=== PATIENT | male | born 1940 | race Caucasian/White ===

== ENCOUNTER 2019-01-05 12:58 | Outpatient (CLI) | payer MEDICARE ==
--- NOTE | 2019-01-05 15:29 | PET ---
Radionucleotide PET scan with CT attenuation correction HISTORY: Diffuse large B-cell lymphoma. Initial staging. COMPARISON: Correlated with CT from [facility] 11/18/2018. FINDINGS: Physiologic uptake of radiotracer throughout the enteric system and along each urinary trac t. Maximum SUV of the uptake associated with the large necrotic right lower quadrant mass is 24.0. Other abnormal areas of uptake are as follows (maximum SUV): Left neck level IIb lymph node (3.5) Right neck level IIb lymph node (2.3) Right internal mammary lymph node (10.9) Right mediastinum superior hilar lymph node (2.7) Left lower para-aortic retroperitoneal lymph node (6.6) Left lower quadrant mesenteric lymph node (4.0) Bulky adenopathy immediately inferior to the aortic bifurcation (10.7) IMPRESSION: Extensive lymphomatous involvement of the neck, chest, and abdomen/pelvis as detailed abo ve. Dianaille score 5 a.
== END 2019-01-05 12:59 | disposition home or self-care (01) ==
LOC: PET 12:58
PROVIDERS: ATTEND Internal Medicine Hematology & Oncology
DX: C83.32 Diffuse large B-cell lymphoma, intrathoracic lymph nodes (principal)
CPT/HCPCS: 78815; A9552

== ENCOUNTER 2019-01-14 16:37 | Emergency (ER) | payer MEDICARE ==
[2019-01-14] MEDS ORDERED: Ondansetron PF 4 MG/2 ML Vial ONE (17:33)
[2019-01-14] MEDS ORDERED: Morphine 4 MG/ML VIAL ONE (17:33)
[2019-01-14 17:42] LABS: Hemoglobin 11.9 g/dL (14.0-18.0); Mean Corpuscular HGB CONC 32.8 g/dL (32.0-36.0); Mean Corpuscular Hemoglobin 28.5 pg (27.0-31.0); Mean Platelet Volume 7.7 fL (7.4-10.4); Platelet Count 236 thou/uL (130-400); Red Blood Cell (RBC) Count 4.17 mill/uL (4.70-6.10); White Blood Cell (WBC) Count 9.8 thou/uL (4.8-10.8)
[2019-01-14 17:56] LABS: Band 1 % (5-11); Lymphocytes 6 % (21-51); MDiff Complete? YES; Monocytes 6 % (0-10); Neutrophil 87 % (42-75); Platelet Morphology Comment Appears Adequate; Polychromasia SLIGHT = 2-3 cells (100X) (0-2/hpf)
[2019-01-14 18:01] LABS: ALT (SGPT) 8 U/L (8-55); AST (SGOT) 20 U/L (5-34); Albumin 3.5 g/dL (3.4-4.8); Alkaline Phosphatase 62 U/L (40-150); Anion Gap 13 mmol/L (10-20); BUN (Urea Nitrogen) 21 mg/dL (8.4-25.7); Bilirubin, Total 0.7 mg/dL (0.2-1.2); CK (CPK) 19 U/L (30-200); Calc. Creatinine Clearance 0 mL/min (70-130); Calcium 9.1 mg/dL (7.8-10.44); Carbon Dioxide 25 mmol/L (23-31); Chloride 102 mmol/L (98-107); Estimated GFR-MDRD 76; Globulin 2.9 g/dL (2.4-3.5); Glucose 130 mg/dL (83-110); Lipase 34 U/L (8-78); Potassium 3.8 mmol/L (3.5-5.1); Protein, Total 6.4 g/dL (5.8-8.1); Sodium 136 mmol/L (136-145)
--- NOTE | 2019-01-14 18:31 | CT ---
CT ABDOMEN AND PELVIS WITH CONTRAST: 01/14/19 HISTORY: History provided is colon cancer. Post surgery 12/25/18. Comparison made to a CT scan from [facility] dated 11/18/18 which has been loaded onto [facility]. Comparison also made to a PET CT of 01/05/19. FINDINGS: The lung bases show chronic parenchymal change without infiltrate or effusion. The liver, spleen, and pancreas are unremarkable. Small bowel loops are normal caliber. Stool and gas seen throughout the colon. There is a large heterogeneous mass in the mid abdomen to the right of midline which has been previou sly noted. This mass was measured at 8 cm AP dimension on the 11/18/18 exam. This mass has an AP dimen guero of up to 10 cm today indicating interval enlargement. A small amount of free fluid in the abdome n. 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 Both kidneys show symmetric enha ncement and function. Urinary bladder is unremarkable. Prostatic seed implants are noted. There are enlarged para-aortic lymph nodes. The lymph node to the left of the aorta just above the b ifurcation has increased in size from prior exam and now measures 1.5 cm. This was a subcentimeter no de on the prior study. Osseous structures appear unremarkable. IMPRESSION: Large heterogeneous mass in the mid abdomen to the right of midline has increased in size when compar ed to recent study. Increasing adenopathy is also apparent. POS: ELLI
[2019-01-14 19:11] LABS: Bilirubin Negative (Negative); Blood, Urine Negative (Negative); Clarity Clear (Clear); Glucose, Urine (Dipstick) Normal (Negative); Leukocyte Negative Leu/uL (Negative); Nitrite Negative (Negative); Protein, Urine (Dipstick) Negative (Neg-Trace); Urobilinogen Normal mg/dL (Less than 2)
== END 2019-01-14 19:47 | disposition home or self-care (01) ==
LOC: ERS 16:37
DX: G89.3 Neoplasm related pain (acute) (chronic) (principal); C18.9 Malignant neoplasm of colon, unspecified; E11.9 Type 2 diabetes mellitus without complications; E78.5 Hyperlipidemia, unspecified; I25.2 Old myocardial infarction; I10 Essential (primary) hypertension; Z85.72 Personal history of non-Hodgkin lymphomas; Z85.46 Personal history of malignant neoplasm of prostate; Z79.899 Other long term (current) drug therapy; Z79.82 Long term (current) use of aspirin
CPT/HCPCS: 74177; 80053; 81003; 82550; 83690; 85025; 96361; 96374; 96375; J2270; J2405

== ENCOUNTER 2019-01-17 17:45 | Inpatient (IN) | payer MEDICARE ==
[~2019-01-17 17:45] MED LIST: ISOVUE-370 76%-LOCM 1 ML ONE
--- NOTE | 2019-01-17 18:50 | CT ---
CTA CHEST AND ABDOMEN AND PELVIS UTILIZING IV CONTRAST WITH 3D REFORMATTED IMAGING: INDICATIONS: History of large B cell lymphoma with sudden onset of pain in the colon area with pain radiating to t he back with constipation. FINDINGS: No acute aortic stenosis, occlusion, or aneurysmal formation is evident. There are moderate calcific ations and irregularity involving the abdominal aorta. There is some mass effect from the large mese nteric mass seen within the central aspect of the abdomen, to the right of midline, on the prior exam ination, dated 01/14/2019. Thismass has not appreciably changed in size, measuring 12.2 x 9.8 cm. The lesion appears to arise from the wall of the proximal sigmoid colon. There are additional enlarg ed mesenteric lymph nodes seen adjacent to this lesion. There are enlarged periaortic lymph nodes, w hich are largely stable. One of the largest is seen within the left periaortic region, measuring 1.1 cm. This is roughly stable to the prior exam. There are patchy areas of tree-in-bud nodularity seen within the lingula and in the right upper lobe. There are scattered areas of emphysema. No definite enlarged mediastinal hilar lymphadenopathy is evident. No axillary lymphadenopathy is evident. The gallbladder is mildly distended. No focal hepatic lesion is evident. The spleen and pancreas ap pear within normal limits. The adrenal glands are normal appearing. The right kidney is normal appe aring. The left pelvic kidney is normal appearing. The visualized bladder, rectum, and perirectal s oft tissues are unremarkable appearing. There is scattered degenerative and osteoarthritic change. The endplate depression deformity of T11 is stable. There are brachytherapy beads in the prostate. IMPRESSION: 1. No acute aortic stenosis, occlusion, or aneurysmal formation. 2. Scattered tree-in-bud nodularity is seen within the lungs, suspicious for bronchiolitis. 3. Persistent pericolonic mass involving the proximal sigmoid colon. There is a moderate amount of retained stool, the majority of which is liquid, in the colon. The small bowel is mildly dilated. M ild obstructive physiology may be related to this mass lesion. There is stool present within the dis kristi sigmoid colon and rectum beyond the level of the mass. This lesion is not completely obstructive . 4. Periaortic retroperitoneal lymphadenopathy. 5. Other chronic findings as above. POS: BH
[2019-01-17 18:59] LABS: ALT (SGPT) 9 U/L (8-55); AST (SGOT) 21 U/L (5-34); Albumin 3.2 g/dL (3.4-4.8); Alkaline Phosphatase 156 U/L (40-150); Anion Gap 14 mmol/L (10-20); BUN (Urea Nitrogen) 19 mg/dL (8.4-25.7); Bilirubin, Total 0.9 mg/dL (0.2-1.2); Calc. Creatinine Clearance 0 mL/min (70-130); Calcium 9.1 mg/dL (7.8-10.44); Carbon Dioxide 26 mmol/L (23-31); Chloride 103 mmol/L (98-107); Estimated GFR-MDRD Greater than 90; Globulin 2.7 g/dL (2.4-3.5); Glucose 119 mg/dL (83-110); Lipase 24 U/L (8-78); Potassium 3.9 mmol/L (3.5-5.1); Protein, Total 5.9 g/dL (5.8-8.1); Sodium 139 mmol/L (136-145)
[2019-01-17 19:02] LABS: Hemoglobin 11.1 g/dL (14.0-18.0); Mean Corpuscular HGB CONC 32.5 g/dL (32.0-36.0); Mean Corpuscular Hemoglobin 28.8 pg (27.0-31.0); Mean Corpuscular Volume 88.6 fL (78.0-98.0); RBC Distribution Width 14.3 % (11.5-14.5); Red Blood Cell (RBC) Count 3.84 mill/uL (4.70-6.10); White Blood Cell (WBC) Count 25.6 thou/uL (4.8-10.8)
[2019-01-17 19:13] LABS: Band 21 % (5-11); Basophilic Stippling SLIGHT = 1-2 cells (100X) (None Seen); Dohle Bodies SLIGHT; Eosinophils 1 % (0-10); Lymphocytes 5 % (21-51); MDiff Complete? YES; Mean Platelet Volume 9.6 fL (7.4-10.4); Neutrophil 72 % (42-75); Platelet Count 95 thou/uL (130-400); Platelet Morphology Comment Appears Decreased; Polychromasia SLIGHT = 2-3 cells (100X) (0-2/hpf); Reactive Lymphocytes 1 % (0-10); Reflex for Review?? NO; Toxic Granulation SLIGHT; Vacuoles SLIGHT
[2019-01-17 19:13] LABS: Bacteria/HPF None Seen HPF (None Seen); Bilirubin Negative (Negative); Blood, Urine Negative (Negative); Clarity Clear (Clear); Glucose, Urine (Dipstick) Normal (Negative); Leukocyte 75 Leu/uL (Negative); Nitrite Negative (Negative); Protein, Urine (Dipstick) 10 mg/dL (Neg-Trace); RBC/HPF 0-3 HPF (0-3); Squamous Epithelial 0-3 HPF (0-3); Urobilinogen Normal mg/dL (Less than 2)
[2019-01-17] MEDS ORDERED: Meropenem 2 GM in Sodium Chloride 0.9% 100 ML IVPB SCH (19:45)
[2019-01-17] MEDS ORDERED: Morphine 4 MG/ML VIAL SLOW IVP PRN (21:25)
[2019-01-17] MEDS ORDERED: Acetaminophen 325 MG TAB PO PRN (23:29)
[2019-01-18] MEDS ORDERED: Bisacodyl 10 MG SUPP PR PRN (03:49)
[2019-01-18] MEDS ORDERED: HumaLOG 300 UNITS/3 ML VIAL SC PRN ×2 (04:08)
[2019-01-18] MEDS ORDERED: Dextrose 50% Abboject 50 ML SYRINGE SLOW IVP PRN (04:08)
[2019-01-18] MEDS ORDERED: Dextrose 5% in Water 1,000 ML IV PRN (04:08)
[2019-01-18 04:43] LABS: Anion Gap 11 mmol/L (10-20); BUN (Urea Nitrogen) 14 mg/dL (8.4-25.7); Calc. Creatinine Clearance 75 mL/min (70-130); Calcium 8.6 mg/dL (7.8-10.44); Carbon Dioxide 28 mmol/L (23-31); Chloride 102 mmol/L (98-107); Estimated GFR-MDRD Greater than 90; Glucose 122 mg/dL (83-110); Potassium 3.7 mmol/L (3.5-5.1); Sodium 137 mmol/L (136-145)
[2019-01-18 04:49] LABS: Band 8 % (5-11); Hemoglobin 10.4 g/dL (14.0-18.0); Hypochromia SLIGHT = 6-15 cells (100X) (0-5/hpf); Lymphocytes 4 % (21-51); MDiff Complete? YES; Mean Corpuscular HGB CONC 33.3 g/dL (32.0-36.0); Mean Corpuscular Hemoglobin 29.4 pg (27.0-31.0); Mean Corpuscular Volume 88.3 fL (78.0-98.0); Mean Platelet Volume 8.8 fL (7.4-10.4); Monocytes 1 % (0-10); Neutrophil 87 % (42-75); Platelet Count 84 thou/uL (130-400); Platelet Morphology Comment Appears Decreased; RBC Distribution Width 14.4 % (11.5-14.5); Red Blood Cell (RBC) Count 3.52 mill/uL (4.70-6.10); White Blood Cell (WBC) Count 21.5 thou/uL (4.8-10.8)
[2019-01-18] MEDS: HYDROcodone/Acetaminophen 10/325 mg Tablet PO PRN (05:22)
--- NOTE | 2019-01-18 07:59 | HP ---
PRIMARY CARE PHYSICIAN: Dr. Almonte. CHIEF COMPLAINT: Abdominal pain. HISTORY OF PRESENT ILLNESS: Mr. Madison is a pleasant 78-year-old man with a known history of metastatic lymphoma, who is undergoing chemotherapy under the direction of Dr. Araya. His last treatment was on Friday last week, and he is not due for treatment until 02 of February. The patient states he has had persistent abdominal pain that seems to be exacerbated by constipation. He states he has not had a bowel movement in 4 to 5 days. He felt this was attributed to decreased oral intake. He does report passing flatus and denies any nausea or vomiting. He does feel slightly distended in the abdomen. Reports having issues with urinary hesitancy and feels he has to sometimes strain in order to begin urinating and then seems to be uncomfortable due to a known abdominal mass. The patient denies noting any hematemesis or blood per rectum. The patient states his pain is usually controlled with hydrocodone. Has not had significant response to morphine given. He has not had any fevers, chills, or sweats. The patient had a PET scan done on 2018 showing extensive lymphomatous involvement of the neck, chest, abdomen, and pelvis. On 01/14/2019, he underwent a CT scan of the abdomen and pelvis showing a large heterogeneous mass in mid abdomen to the right of midline that had increased in size when compared to recent study. Increased adenopathy present. In the Emergency Department, he had a CT dissection showing no acute aortic stenosis, occlusion, or aneurysmal formation. Scattered tree-in-bud nodularity seen within the lungs, suspicious for bronchiolitis. Persistent pericolonic mass involving the proximal sigmoid colon with a moderate amount of retained stool. The majority of which is liquid in the colon. The small bowel is mildly dilated. Mild obstructive physiology may be related to this mass. There is stool present within the distal sigmoid colon and rectum beyond the level of the mass. This lesion was not completely obstructive. Retroperitoneal lymphadenopathy present. PAST MEDICAL HISTORY: 1. Metastatic lymphoma. 2. Diabetes type 2. 3. History of LA. 4. Hyperlipidemia. 5. Hypertension. 6. Prostate cancer, treated with radiation in 2012. PAST SURGICAL HISTORY: Surgery attempt for removal of tumor. SOCIAL HISTORY: The patient denies any alcohol use, tobacco use, or illicit drug use. ALLERGIES: TRAMADOL. CURRENT MEDICATIONS: 1. Lisinopril. 2. Lovastatin. 3. Allopurinol. 4. Metoprolol succinate. 5. Omeprazole. PHYSICAL EXAMINATION: GENERAL: The patient found to be resting comfortably. VITAL SIGNS: Temperature 99.5, pulse 89, respirations 20, O2 saturation 96% on room air, and blood pressure 145/57. HEENT: Normocephalic and atraumatic. Pupils are equal, round, and reactive to light. Sclerae without icterus. Oropharynx is clear. NECK: Supple. LUNGS: Clear to auscultation bilaterally. CARDIAC: Regular rate and rhythm. ABDOMEN: Slightly distended, soft. No guarding or rigidity. Absent bowel sounds. EXTREMITIES: No lower leg swelling or edema. NEUROLOGIC: Alert and oriented x3. SKIN: Without rash or jaundice. LABORATORY DATA: White blood count 25.6, hemoglobin 11.1, hematocrit 34, and platelets 95. Sodium 139, potassium 3.9, BUN 19, creatinine 0.75, GFR greater than 90, glucose 119, lactic acid 1.9, calcium 9.1, total bilirubin 0.9, AST 21, ALT 9, alkaline phosphatase 156, total protein 5.9, albumin 3.2, lipase 24. Urinalysis notable for 40 of ketones, 75 leukocyte esterase, and 7 to 10 white blood cells. IMPRESSION AND PLAN: Mr. Madison is a 78-year-old man with known metastatic lymphoma referred for management of the following. 1. Abdominal pain. Secondary to abdominal mass, under treatment by Dr. Araya. CT dissection done in the ER shows changes consistent with a persistent pericolonic mass involving the proximal sigmoid colon. There was retained stool much of which is liquid, small bowel slightly dilated with a mild obstructive physiology suspected. Stool present within the distal sigmoid colon and rectum. Following discussion with Dr. Estevez, she advise a consultation to General Surgery. Very likely that surgery will not be indicated. We will keep the patient n.p.o. for now. We will continue to manage pain with IV morphine. 2. Diabetes. Initiate insulin sliding scale. Monitor glucose. 3. Hypertension. Resume home medications once verified and monitor blood pressure. 4. Gastrointestinal prophylaxis. 5. Deep venous thrombosis prophylaxis with mechanical SCDs. 6. Code status, full. The patient's decision maker is his , Marisol Madison. The patient's case was discussed with Dr. Estevez, who agrees with the plan of care as described above. Job ID: [id number] [facility]
[2019-01-18] MEDS: Famotidine/PF 20 mg/2ml Vial SLOW IVP SCH ×2 (08:49→21:39)
[2019-01-18] MEDS: Lisinopril 10 MG TAB PO SCH (09:02)
[2019-01-18] MEDS: Senokot S 8.6-50 MG TAB PO SCH ×2 (09:03→21:38)
[2019-01-18] MEDS: Morphine 4 MG/ML VIAL SLOW IVP PRN ×3 (11:54→22:21)
[2019-01-18] MEDS ORDERED: Magnesium Citrate 300 ML BOT PO SCH (14:00)
[2019-01-18] MEDS ORDERED: Milk Of Magnesia 30 ML UDCUP PO SCH (14:00)
[2019-01-18 16:37] VITALS: BMI 21.9
[2019-01-18] MEDS: Piperacillin/Tazobactam 3.375 GM in Sodium Chloride 0.9% 100 ML IVPB SCH ×2 (18:14→23:59)
--- NOTE | 2019-01-18 18:54 | PRG ---
DATE OF SERVICE: 01/18/2019 SUBJECTIVE: Mr. Madison is a very pleasant 78-year-old male with past medical history significant for metastatic B-cell lymphoma with known abdominal mass, who presented to the hospital with complaints of intractable abdominal pain and constipation. The patient continues to complain of abdominal pain, requiring IV pain medication. He continues to complain of constipation. States that his last bowel movement was approximately 6 days ago. He has had no nausea or vomiting. He denies any chest pain or shortness of breath. The patient is n.p.o. currently at the time of my assessment. OBJECTIVE: VITAL SIGNS: Blood pressure is 146/61, pulse is 86, O2 saturation is 95% on room air, respirations 16. The patient is afebrile, temperature 98.7. GENERAL: The patient is a thin, male, resting comfortably in bed. He is in no respiratory distress at this time. HEENT: Head is atraumatic and normocephalic. Mucous membranes are moist. NECK: Trachea is midline. No obvious JVD. CV: S1 and S2. Regular rate and rhythm. No appreciable murmurs, rubs, or gallops. LUNGS: Regular respiratory rate and pattern, overall clear to auscultation bilaterally. ABDOMEN: Mildly tender diffusely, positive bowel sounds, although hypoactive. No guarding. Abdomen is mildly distended. EXTREMITIES: No edema. SKIN: Warm and dry. NEUROLOGIC: Cranial nerves 2 through 12 are grossly intact. The patient is nonfocal. LABORATORY DATA: White blood cell count 21.5, hemoglobin 10.4, hematocrit 31.1, platelets are 84. Sodium 137, potassium 3.7, BUN is 14, creatinine 0.77, GFR greater than 90. ASSESSMENT: 1. Metastatic B-cell lymphoma with abdominal mass, now with intractable abdominal pain and constipation. 2. Question of partial small-bowel obstruction secondary to above per CT scan. 3. Type 2 diabetes mellitus. 4. Constipation. PLAN: Given the severity of the patient's symptoms and intractable pain requiring IV pain medication, the patient meets inpatient criteria at this time and will require at least two midnight stay. Oncology consult has been placed. The patient to receive chemotherapy in the near future; the patient's family has requested consult. Also as I state, they are being considered for referral to [facility]. When cleared by surgery, we will add p.o. medication for constipation. We will continue pain control for now and await surgical recommendations. Care discussed with Dr. Becerra, who recommends empiric antibiotic coverage with Zosyn at this time. Further recommendations based on hospital course. Job ID: [id number]
[2019-01-18] MEDS ORDERED: Non-Formulary Item 1 EACH (Lovastatin [Altoprev] 40 MG) PO SCH (21:00)
[2019-01-18] MEDS ORDERED: Citrucel 500 MG TAB PO SCH (21:00)
--- NOTE | 2019-01-18 21:18 | CON ---
DATE OF CONSULTATION: HISTORY OF PRESENT ILLNESS: Pérez Madison is a 78-year-old male, admitted to the hospital because of abdominal pain, lower back pain. He has not had any vomiting or nausea. Last bowel movement was 4 or 5 days ago. He passed flatus this morning. He was seen in the emergency room last night because of abdominal pain complaints, underwent a CAT scan dissection protocol without oral contrast, abdomen and pelvis. There was noted to be the large retroperitoneal mass, intraabdominal mass, lymphadenopathy. As previously appreciated, he is being treated for lymphoma by Dr. Araya. CAT scan suggested some scattered mild dilatation of the small bowel, stool present in the colon, mild dilatation of the proximal colon with stool still in the distal colon. The patient is admitted now that I see him regarding obstruction. The patient had a colonoscopy 3-[address] Almonte. Apparently, he was told the scope passed to visualize the whole colon. The patient tolerated his bowel prep prior well and he had a good bowel prep indicating absence of obstruction. The patient was felt to have an obstruction and Dr. Rebel Israel did an exploratory laparotomy on December 23, 2018. He suspected a colon tumor. Biopsies obtained revealed lymphoma. A MediPort was placed. He has been followed by Dr. Araya for chemotherapy. Dr. Araya hopes that the bulky lymphoma mass will decrease in size and improve the patient's pain. Again, the patient has not had any nausea or vomiting, although he feels slightly bloated. I have told him that his back pain is probably due to his tumor burden. His bloating is due to the tumor. ALLERGIES: TRAMADOL. SOCIAL HISTORY: Tobacco, none. Alcohol, none. PAST MEDICAL HISTORY: Coronary artery disease, myocardial infarction 20 years ago, had one stent placed. He was followed by Dr. Matos initially, but has been followed by Dr. Lancaster more recently. Two to three weeks ago, he had a negative stress test. Hypertension, diabetes mellitus type 2, hyperlipidemia, prostate cancer, treated with radiation in 2012. PAST SURGICAL HISTORY: Laparotomy in December 23, Dr. Rebel Israel, appreciating the unresectable tumor nature and led to the diagnosis of lymphoma. MEDICATIONS: 1. Lisinopril. 2. Lovastatin. 3. Allopurinol. 4. Metoprolol. 5. Omeprazole. PHYSICAL EXAMINATION: VITAL SIGNS: Height 5 feet 8 inches, weight 144 pounds, 21 BMI, temperature 98.7, pulse 86, blood pressure 146/61. HEAD, EARS, EYES, NOSE, AND THROAT: Unremarkable. LUNGS: Clear to auscultation. CARDIAC: Regular rate and rhythm without murmur or gallop. ABDOMEN: Soft, mildly tympanitic, mildly protuberant, nontender. EXTREMITIES: Unremarkable. LABORATORY DATA: White count 21,000, hemoglobin 10.4. Sodium 137, potassium 3.7, 102 chloride, BUN 14. ASSESSMENT AND PLAN: Lymphoma with bulky lymphadenopathy, intraabdominal. Would avoid operation. Midline incision is well healed and his operation was only 2-1/2 weeks ago. Prior to this, colonoscope was performed. There was no colon obstruction. He has passed flatus this morning. I think he has more problem with constipation. He takes MiraLAX twice a day at home, we would continue that. We would give him magnesium citrate, milk of magnesia, MiraLAX twice a day. We would begin him on a soft diet and continue soft low-fiber diet. We would have Dietary talk to him about that. We would continue to hydrate him and hopefully can be discharged home in the next day or 2 and follow up with Dr. Araya and continue chemotherapy. Job ID: [id number]
[2019-01-18] MEDS: Atorvastatin Calcium 10 MG TAB PO SCH (21:38)
[2019-01-18] MEDS: Polyethylene Glycol 3350 17 GM Packet PO SCH (21:39)
--- NOTE | 2019-01-19 00:21 | CON ---
DATE OF CONSULTATION: 01/18/2019 HISTORY OF PRESENT ILLNESS: Mr. 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 Notably, he presented just prior to that with an enlarging right colonic mass which was causing some pain and impending obstruction. He was treated somewhat urgently because of this and had some relief even just with the IV steroids. He has done fairly well with the treatment, but over the last 1-2 days developed increasing pain which brought him back to the emergency room. The pain got so bad that he felt like he could not stand it. He is having trouble when he was urinating. He denies nausea or vomiting and has had no hemoptysis or hematemesis. He denies any bleeding in his stool or dark tarry stools. He is keeping food down and for lunch today had potato soup as well as ice cream without any nausea. Mostly, his pain is his issue. PAST MEDICAL HISTORY: 1. 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 2. Congestive heart failure with an ejection fraction of 39%. 3. Diabetes mellitus type 2. 4. Hyperlipidemia. 5. Hypertension. 6. Prostate cancer with a history of radiation in 2012. CURRENT MEDICATIONS: 1. Tylenol p.r.n. 2. Roann p.r.n. 3. Lipitor 10 mg p.o. at bedtime. 4. Dulcolax 10 mg p.o. daily p.r.n. 5. Pepcid 20 mg IV q.12 hours. 6. Insulin lispro. 7. Zestril 10 mg p.o. daily. 8. Citrucel 500 mg p.o. b.i.d. 9. Toprol-XL 50 mg p.o. daily. 10. Morphine 4 mg IV q.4 hours p.r.n. 11. Zosyn. 12. MiraLAX 17 g p.o. b.i.d. 13. Senokot two tabs p.o. b.i.d. 14. Magnesium citrate. 15. Milk of magnesia, recently stopped. ALLERGIES: TRAMADOL. SOCIAL HISTORY: He is here with his as well as several grandchildren and children who are quite supportive. He denies anything other than occasional alcohol use. REVIEW OF SYSTEMS: Otherwise, 10-point review of systems negative including no fevers or chills. PHYSICAL EXAMINATION: VITAL SIGNS: Temperature 98.7, pulse 86, respirations 16, O2 saturation 95% on room air, blood pressure 146/61. GENERAL: He is lying supine, in no acute distress, but with some discomfort. HEENT: Extraocular muscles are intact. Sclerae are anicteric. NECK: Supple without lymphadenopathy. CARDIOVASCULAR: Regular rhythm. LUNGS: Clear to auscultation bilaterally. ABDOMEN: Hypoactive bowel sounds, there is a large mass in the right flank, which is somewhat tender to palpation and stable in size. LABORATORY DATA: White blood cell count 21.5, hemoglobin 10.4, platelets 84. Sodium 137, potassium 3.7, chloride 102, CO2 28, BUN 14, creatinine 0.7, glucose 122, calcium 8.6. On admission, alkaline phosphatase 156, AST 21, ALT 9, total bilirubin 0.9, calcium 9.1. DIAGNOSTIC DATA: CT of the abdomen and pelvis done on admission showed a mass in the right flank measuring 12.2 x 9.8 cm. There are additional enlarged mesenteric lymph nodes seen adjacent to the lesion. There is a moderate amount of retained stool, the majority of which is liquid in the colon. The small bowel is mildly dilated with mild obstructive physiology, possibly related to the mass. There is stool present within the distal sigmoid colon and rectum beyond the level of the mass. The lesion is not completely obstructive. ASSESSMENT: Mr. Madison is a 78-year-old male with; 1. Double-hit diffuse large B-cell lymphoma of the abdomen involving the colon. 2. Abdominal pain secondary to this mass. 3. Partially obstructed colon secondary to the mass. 4. Leukocytosis, likely secondary to Neulasta. PLAN: 1. He has already been given pain medicine and narcotics. 2. I would recommend we continue the aggressive laxatives to see over the next few days if he can have a bowel movement. 3. I would stop the Citrucel as it may in fact bulk up the stool. 4. I have recommended that he ambulate quite often in the halls. 5. We will get GI involved to see if they have anything to add. 6. We would like to avoid surgery at all costs. 7. We will follow with you. Job ID: [id number]
[2019-01-19] MEDS: Morphine 4 MG/ML VIAL SLOW IVP PRN ×4 (05:32→23:56)
[2019-01-19] MEDS: Piperacillin/Tazobactam 3.375 GM in Sodium Chloride 0.9% 100 ML IVPB SCH ×4 (05:33→23:56)
[2019-01-19 06:32] LABS: Band 20 % (5-11); Eosinophils 4 % (0-10); Lymphocytes 9 % (21-51); MDiff Complete? YES; Mean Corpuscular HGB CONC 32.2 g/dL (32.0-36.0); Mean Corpuscular Hemoglobin 29.2 pg (27.0-31.0); Mean Corpuscular Volume 90.5 fL (78.0-98.0); Mean Platelet Volume 8.4 fL (7.4-10.4); Monocytes 4 % (0-10); Neutrophil 63 % (42-75); Platelet Count 107 thou/uL (130-400); Platelet Morphology Comment Appears Decreased; RBC Distribution Width 14.4 % (11.5-14.5); Red Blood Cell (RBC) Count 3.76 mill/uL (4.70-6.10); White Blood Cell (WBC) Count 6.6 thou/uL (4.8-10.8)
[2019-01-19 06:50] LABS: ALT (SGPT) 10 U/L (8-55); AST (SGOT) 19 U/L (5-34); Albumin 3.2 g/dL (3.4-4.8); Alkaline Phosphatase 157 U/L (40-150); Anion Gap 12 mmol/L (10-20); BUN (Urea Nitrogen) 9 mg/dL (8.4-25.7); Bilirubin, Total 0.8 mg/dL (0.2-1.2); Calc. Creatinine Clearance 67 mL/min (70-130); Calcium 8.9 mg/dL (7.8-10.44); Carbon Dioxide 26 mmol/L (23-31); Chloride 99 mmol/L (98-107); Estimated GFR-MDRD Greater than 90; Globulin 2.6 g/dL (2.4-3.5); Glucose 124 mg/dL (83-110); Potassium 4.2 mmol/L (3.5-5.1); Protein, Total 5.8 g/dL (5.8-8.1); Sodium 133 mmol/L (136-145); Uric Acid 3.4 mg/dL (3.5-7.2)
[2019-01-19 07:35] LABS: Magnesium 1.7 mg/dL (1.6-2.6)
[2019-01-19] MEDS: HYDROcodone/Acetaminophen 10/325 mg Tablet PO PRN (08:34)
[2019-01-19] MEDS: Lisinopril 10 MG TAB PO SCH (08:35)
[2019-01-19] MEDS: Senokot S 8.6-50 MG TAB PO SCH ×2 (08:35→20:21)
[2019-01-19] MEDS: Famotidine/PF 20 mg/2ml Vial SLOW IVP SCH ×2 (08:36→20:20)
[2019-01-19] MEDS: Polyethylene Glycol 3350 17 GM Packet PO SCH ×2 (08:36→20:19)
[2019-01-19] MEDS ORDERED: Sodium Chloride 0.9% 1,000 ML IV SCH ×2 (09:30→15:30)
--- NOTE | 2019-01-19 14:11 | RAD ---
XR Abdomen 2 View History: Small bowel obstruction Comparison: CT abdomen January 17, 2019 Findings: Relative paucity of right lower quadrant bowel gas. Multiple air-fluid levels predominantly in the left upper quadrant of the abdomen. Radiotherapy therapy seeds project over the prostate. Impression: Low-grade small bowel obstruction due to the pericolonic mass.
--- NOTE | 2019-01-19 16:04 | PDOC.HOSPP ---
- Subjective Subjective: Mr. Madison was seen today in follow-up of abdominal pain and obstipation. He says he still has not had a bowel movement yet. He has passed some gas however.He denies any significant abdominal pain. - Objective Vital Signs & Weight: Vital Signs (12 hours) Temp Pulse Resp BP BP Pulse Ox 01/19/19 12:32 76 16 126/73 97 01/19/19 08:35 143/59 H 91 L 01/19/19 07:33 98.8 F 73 19 143/59 H 91 L 01/19/19 04:39 98.8 F 75 18 148/73 H 95 Weight Admit Weight 144 lb Weight 144 lb I&O: 01/18/19 01/19/19 01/20/19 06:59 06:59 06:59 Intake Total 700 Balance 700 Result Diagrams: 01/19/19 05:52 01/19/19 05:52 Additional Labs: Accuchecks 01/19/19 01/19/19 01/18/19 11:47 04:44 20:03 POC Glucose 212 H 118 H 134 H 01/18/19 16:46 POC Glucose 151 H ROS - Review of Systems All systems: All other ROS were reviewed and found negative. - Medication Medications: Active Medications Generic Name Dose Route Start Last Admin Trade Name Freq PRN Reason Stop Dose Admin Acetaminophen 650 mg 01/17/19 23:29 01/17/19 23:43 Tylenol PO 650 mg Q4H PRN Administration Fever > 101 Hydrocodone Bitart/Acetaminophen 1 tab 01/18/19 03:49 01/19/19 08:34 [place] 10/325 PO 1 tab Q4H PRN Administration Moderate Pain (4-6) Atorvastatin Calcium 10 mg 01/18/19 21:00 01/18/19 21:38 Lipitor PO 10 mg HS JOVANI Administration Famotidine 20 mg 01/18/19 09:00 01/19/19 08:36 Pepcid SLOW IVP 20 mg Q12HR JOVANI Administration Piperacillin Sod/Tazobactam 100 mls @ 200 mls/hr 01/18/19 18:00 01/19/19 12: 36 Sod 3.375 gm/ Sodium Chloride IVPB 100 mls Q6HR JOVANI Administration Sodium Chloride 1,000 mls @ 0 mls/hr 01/19/19 15:30 01/19/19 15:33 Normal Saline 0.9% IV 1,000 mls .Q0M JOVANI Administration KVO Lisinopril 10 mg 01/18/19 09:00 01/19/19 08:35 Zestril PO 10 mg DAILY JOVANI Administration Metoprolol Succinate 50 mg 01/18/19 09:00 01/19/19 08:35 Toprol Xl PO 50 mg DAILY JOVANI Administration Morphine Sulfate 4 mg 01/18/19 10:42 01/19/19 12:37 Morphine SLOW IVP 4 mg Q4H PRN Administration Breakthrough Pain Polyethylene Glycol 17 gm 01/18/19 21:00 01/19/19 08:36 Miralax PO 17 gm BID JOVANI Administration Senna/Docusate Sodium 2 tab 01/18/19 09:00 01/19/19 08:35 Senokot S PO 2 tab BID JOVANI Administration Sodium Chloride 10 ml 01/18/19 03:49 01/19/19 08:36 Flush - Normal Saline IVF 10 ml Q12HR PRN Administration Saline Flush - Exam Eye: PERRL, anicteric sclera ENT: normocephalic atraumatic Heart: RRR, no murmur, no gallops, no rubs, normal peripheral pulses Respiratory: CTAB, no wheezes, no rales, no ronchi, normal chest expansion Gastrointestinal: soft, distended (+ mildly distended, hypoactive bowel sounds) Hosp A/P (1) Obstipation Code(s): K59.00 - CONSTIPATION, UNSPECIFIED Status: Acute (2) Large B-cell lymphoma Code(s): C85.10 - UNSPECIFIED B-CELL LYMPHOMA, UNSPECIFIED SITE Status: Acute (3) Hypertension Code(s): I10 - ESSENTIAL (PRIMARY) HYPERTENSION Status: Acute (4) Diabetes mellitus type 2 in nonobese Code(s): E11.9 - TYPE 2 DIABETES MELLITUS WITHOUT COMPLICATIONS Status: Chronic - Plan * Obstipation- continue treatment for constipation- KUB has been ordered * HTN- blood pressure is stable * DM- blood glucose is stable
--- NOTE | 2019-01-19 17:41 | PRG ---
DATE OF SERVICE: 01/19/2019 SUBJECTIVE: Pérez Madison is doing well today. He has not had any nausea or vomiting, otherwise he just feels slightly bloated. He took his magnesium citrate and milk of magnesia yesterday and is taking MiraLAX twice a day. He has not had a bowel movement. He has had flatus, however. He feels slightly distended as he did when he was admitted to the hospital. Abdominal x-rays reveal partial bowel obstruction findings with a few air-fluid levels. OBJECTIVE: VITAL SIGNS: Temperature 98.8 degrees, blood pressure 143/59, 126/73. LUNGS: Clear to auscultation. CARDIAC: Regular rate and rhythm without murmur or gallop. ABDOMEN: Soft, mildly tympanitic, mildly distended. Nontender. Large abdominal mass. EXTREMITIES: Unremarkable. ASSESSMENT AND PLAN: Malignant lymphoma, undergoing chemotherapy with a partial bowel obstruction secondary to tumor. We would revert back to full liquids. The patient reports clear urine and he is taking adequate liquids. His white count down to 6 and hemoglobin 11. Basic metabolic profile is normal. Continue current therapy. Job ID: [id number]
[2019-01-19] MEDS: Enoxaparin Sodium 40 MG/0.4 ML SYRINGE SC SCH (20:21)
[2019-01-19] MEDS: Atorvastatin Calcium 10 MG TAB PO SCH (20:21)
[2019-01-20] MEDS: Piperacillin/Tazobactam 3.375 GM in Sodium Chloride 0.9% 100 ML IVPB SCH ×4 (05:10→23:19)
[2019-01-20 05:11] LABS: ALT (SGPT) 11 U/L (8-55); AST (SGOT) 18 U/L (5-34); Albumin 3.3 g/dL (3.4-4.8); Alkaline Phosphatase 137 U/L (40-150); Anion Gap 9 mmol/L (10-20); BUN (Urea Nitrogen) 9 mg/dL (8.4-25.7); Bilirubin, Total 0.7 mg/dL (0.2-1.2); Calc. Creatinine Clearance 63 mL/min (70-130); Calcium 9.6 mg/dL (7.8-10.44); Carbon Dioxide 31 mmol/L (23-31); Chloride 99 mmol/L (98-107); Estimated GFR-MDRD 84; Globulin 2.7 g/dL (2.4-3.5); Glucose 119 mg/dL (83-110); Magnesium 1.8 mg/dL (1.6-2.6); Phosphorus 2.5 mg/dL (2.3-4.7); Potassium 4.3 mmol/L (3.5-5.1); Sodium 135 mmol/L (136-145); Uric Acid 2.5 mg/dL (3.5-7.2)
[2019-01-20] MEDS: Morphine 4 MG/ML VIAL SLOW IVP PRN ×4 (05:11→23:18)
[2019-01-20 05:24] LABS: Band 16 % (5-11); Hemoglobin 10.6 g/dL (14.0-18.0); Hypochromia SLIGHT = 6-15 cells (100X) (0-5/hpf); Lymphocytes 22 % (21-51); MDiff Complete? YES; Mean Corpuscular HGB CONC 32.7 g/dL (32.0-36.0); Mean Corpuscular Hemoglobin 29.3 pg (27.0-31.0); Mean Corpuscular Volume 89.5 fL (78.0-98.0); Monocytes 10 % (0-10); Neutrophil 52 % (42-75); Platelet Count 115 thou/uL (130-400); Platelet Morphology Comment Appears Decreased; RBC Distribution Width 14.3 % (11.5-14.5); Red Blood Cell (RBC) Count 3.62 mill/uL (4.70-6.10); White Blood Cell (WBC) Count 3.9 thou/uL (4.8-10.8)
--- NOTE | 2019-01-20 07:49 | CON ---
DATE OF CONSULTATION: 01/19/2019 REASON FOR CONSULTATION: Abdominal pain, constipation, and difficulty having a bowel movement. HISTORY OF PRESENT ILLNESS: Mr. Pérez Madison is a very pleasant 78-year-old male seen by me two months ago with abdominal pain and also a mass over the right upper quadrant. He underwent colonoscopy and colonoscopy did not show any intraluminal mass. There was mild luminal narrowing of the sigmoid area, felt to be due to extrinsic compression. He also had some mild inflammatory changes in the sigmoid colon area. The biopsy of sigmoid area, which revealed no pathology. Subsequently, he was referred to General Surgery for laparotomy because of the abdominal mass on CAT scan and also physical exam. He underwent surgery by Dr. Rebel Israel a month ago and was found to have extensive adhesions from the abdominal mass and all the bowel looks like stuck together. He had a biopsy of the lesion, which came back as lymphoma. He subsequently was referred to Dr. Araya for chemotherapy. The patient has had one cycle of chemotherapy. Although, he has a very large abdominal mass, he has very little pain. The patient also have a regular bowel movements once until recently. He came to the ER with abdominal pain and had an abdominal CAT scan. The CAT scan shows the same findings as before. No bowel obstruction seen. He was on Citrucel before, which was stopped. He is now on MiraLAX twice a day. He has a poor appetite, does not feel like eating basically because of fear of some bowel blocking and unable to go to the bathroom. The patient has no relevant history. PAST MEDICAL HISTORY: Medical illnesses; 1. 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 2. Type 2 diabetes mellitus. 3. Coronary artery disease. 4. Hyperlipidemia. 5. Hypertension. 6. Prostate cancer status post radiation therapy in 2012. PAST SURGICAL HISTORY: Surgeries; laparotomy for possible removal of the tumor, but felt to be not resectable because of extensive involvement and adhesions to the bowel. SOCIAL HISTORY: The patient does not smoke or drink alcohol. ALLERGIES: TRAMADOL. MEDICATION LIST: Reviewed. REVIEW OF SYSTEMS: Remarkable for abdominal pain, poor appetite and constipation. PHYSICAL EXAMINATION: GENERAL: He appears very comfortable, in no acute distress. VITAL SIGNS: He is afebrile. His pulse is 88 and blood pressure is 140/70. HEENT: Conjunctivae clear. NECK: Supple. No adenitis or thyromegaly noted. CARDIOVASCULAR SYSTEM: First and second heart sounds were heard. LUNGS: Clear to auscultation. ABDOMEN: Soft and nondistended. There is some tenderness over the right lower quadrant, lumbar area, very minimal. The operative scar is well healed. No rebound or guarding. Bowel sounds are active. LABORATORY DATA: Shows CBC; WBC today 6600, hemoglobin 11, hematocrit 34, MCV 90.5, platelet count is 107,000, polymorphs 63, bands 20, and monocytes 9. Chemistry profile; sodium 133, potassium 4.2, chloride 99, bicarb 26, BUN is 9, creatinine 0.82, glucose 124, and calcium is 8.9. Liver function tests are normal. Lipase is normal. Albumin 2.2. CLINICAL IMPRESSION: A 78-year-old male with a recent diagnosis of the abdomen lymphoma with extensive involvement of small bowel, and the small bowel looks like kind of stuck together as per the operative report. The patient refers to abdominal pain, and the abdominal pain seems to have resolved. He has had some constipation off and on. At present, abdomen is very benign. He is somewhat afraid because of the possibility of bowel obstruction. RECOMMENDATION: 1. I encouraged the patient to drink at least Ensure one can three times a day. 2. Advised to continue the MiraLAX twice a day. 3. I encouraged Mr. Madison to eat as soon as possible. He was reassured that once he gets adequate chemotherapy, his lymphoma may shrink and eventually help make him better and have regular bowel movement. MiraLAX does not help to make him go to the bathroom, may consider lactulose 30 mL three times a day. Job ID: [id number]
[2019-01-20] MEDS: HYDROcodone/Acetaminophen 10/325 mg Tablet PO PRN ×3 (08:15→20:10)
[2019-01-20] MEDS: Lisinopril 10 MG TAB PO SCH (08:15)
[2019-01-20] MEDS: Senokot S 8.6-50 MG TAB PO SCH ×2 (08:15→20:10)
[2019-01-20] MEDS: Polyethylene Glycol 3350 17 GM Packet PO SCH ×2 (09:26→20:09)
[2019-01-20] MEDS: Famotidine/PF 20 mg/2ml Vial SLOW IVP SCH ×2 (09:26→20:10)
--- NOTE | 2019-01-20 14:26 | PQF ---
CLINICAL DOCUMENTATION IMPROVEMENT CLARIFICATION FORM: ICD-10 Updated PLEASE DO AN ADDENDUM TO THE PROGRESS NOTE WITH ANY DOCUMENTATION UPDATES OR ADDITIONS AND CARRY THROUGH TO DC SUMMARY. THANK YOU. Date: 01/20/2019; 01/21/2019 ATTN: Dr. Clark/ Dr. Zepeda Please exercise your independent, professional judgment in responding to the clarification form. Clinical indicators are provided on the bottom of this form for your review Please check appropriate box(s): [ ] Protein Calorie Malnutrition: [ ] Mild [ ] Moderate [ ] Severe [ ] Other Malnutrition (please specify) [ x ] Underweight without malnutrition [ ] Cachexia [ ] Other diagnosis [ ] Unable to determine In addition, please specify: Present on Admission (POA): [ x ] Yes [ ] No [ ] Unable to determine CLINICAL INDICATORS - SIGNS / SYMPTOMS / LABS Dietican Assessment 01/18: -10% wt loss x 3-5 months per pt report Nutrition dx: Malnutrition Related to: catabolic illness as evidenced by severe malnutrition in the context of chronic illness metastatic lymphoma with -10% wt loss x 3-5 months, and less than 75% estimated need met x greater than or equal to 1 month. RISKS: H&P 01/17: 78 yo with known metastatic lymphoma . Diabetes. 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 Partially obstructed colon secondary to the mass. TREATMENT: Order 01/18: Diet Supplement: glucerna shake bid Order 01/19: Diet Supplement: Ensure High Protein Muscle TID Order 01/19: Diet Supplement: Ensure Enlive TID Moderate Malnutrition (in acute illness) Energy Intake: <75% of estimated energy requirement for > 7 days Weight Loss: 1-2%/1 week; 5%/ 1 month; 7.5%/3 months Other: mild body fat loss; mild muscle mass loss; mild fluid accumulation; Severe Malnutrition (in acute illness) Energy Intake: < 50% of estimated energy requirement for > 5 days Weight Loss: >1-2%/1 week; >5%/1 month; >7.5%/3 months Other: moderate body fat loss; moderate muscle mass loss; moderate- severe fluid accumulation; measurably reduced teachers' assistant strength Moderate Malnutrition (in chronic illness) Energy Intake: <75% of estimated energy requirement for >1 month Weight Loss: 5%/1 month; 7.5%/3 months; 10%/6 months; 20%/1 year Other: mild body fat loss; mild muscle mass loss; mild fluid accumulation Severe Malnutrition (in chronic illness) Energy Intake: <75% of estimated energy requirement for >1 month Weight Loss: >5%/1 month; >7.5%/3 months; >10%/6 months; >20%/1 year Other: severe body fat loss; severe muscle mass loss; severe fluid accumulation; measurably reduced teachers' assistant strength Thank you, Francesca (This form is maintained as a part of the permanent medical record) 2015 [employer] All Rights Reserved Francesca Anderson RN, BSN [email or web address] Office: [phone] [facility]ALTH[facility]
--- NOTE | 2019-01-20 14:31 | PDOC.HOSPP ---
- Subjective Subjective: Mr. Madison was seen today in follow-up of Partial small bowel obstruction. He has not yet had a bowel movement. He notes some abdominal discomfort. He has not had nausea or vomiting. - Objective Vital Signs & Weight: Vital Signs (12 hours) Temp Pulse Resp BP BP Pulse Ox 01/20/19 11:35 97.8 F 70 18 137/71 01/20/19 08:15 143/59 H 01/20/19 08:00 93 L 01/20/19 07:38 97.6 F 73 18 157/67 H 93 L 01/20/19 04:29 98.2 F 75 16 149/68 H 97 Weight Admit Weight 144 lb Weight 144 lb I&O: 01/19/19 01/20/19 01/21/19 06:59 06:59 06:59 Intake Total 700 2900 Output Total 825 Balance 700 2075 Result Diagrams: 01/20/19 04:04 01/20/19 04:04 Additional Labs: Accuchecks 01/20/19 01/20/19 01/19/19 11:36 04:33 20:06 POC Glucose 191 H 115 H 131 H 01/19/19 15:48 POC Glucose 104 ROS - Review of Systems All systems: All other ROS were reviewed and found negative. - Medication Medications: Active Medications Generic Name Dose Route Start Last Admin Trade Name Freq PRN Reason Stop Dose Admin Acetaminophen 650 mg 01/17/19 23:29 01/17/19 23:43 Tylenol PO 650 mg Q4H PRN Administration Fever > 101 Hydrocodone Bitart/Acetaminophen 1 tab 01/18/19 03:49 01/20/19 13:53 [place] 10/325 PO 1 tab Q4H PRN Administration Moderate Pain (4-6) Atorvastatin Calcium 10 mg 01/18/19 21:00 01/19/19 20:21 Lipitor PO 10 mg HS JOVANI Administration Enoxaparin Sodium 40 mg 01/19/19 21:00 01/19/19 20:21 Lovenox SC 40 mg 2100 JOVANI Administration Famotidine 20 mg 01/18/19 09:00 01/20/19 09:26 Pepcid SLOW IVP 20 mg Q12HR JOVANI Administration Piperacillin Sod/Tazobactam 100 mls @ 200 mls/hr 01/18/19 18:00 01/20/19 12: 11 Sod 3.375 gm/ Sodium Chloride IVPB 100 mls Q6HR JOVANI Administration Sodium Chloride 1,000 mls @ 0 mls/hr 01/19/19 15:30 01/19/19 15:33 Normal Saline 0.9% IV 1,000 mls .Q0M JOVANI Administration KVO Lisinopril 10 mg 01/18/19 09:00 01/20/19 08:15 Zestril PO 10 mg DAILY JOVANI Administration Metoprolol Succinate 50 mg 01/18/19 09:00 01/20/19 08:15 Toprol Xl PO 50 mg DAILY JOVANI Administration Morphine Sulfate 4 mg 01/18/19 10:42 01/20/19 12:09 Morphine SLOW IVP 4 mg Q4H PRN Administration Breakthrough Pain Polyethylene Glycol 17 gm 01/18/19 21:00 01/20/19 09:26 Miralax PO 17 gm BID JOVANI Administration Senna/Docusate Sodium 2 tab 01/18/19 09:00 01/20/19 08:15 Senokot S PO 2 tab BID JOVANI Administration Sodium Chloride 10 ml 01/18/19 03:49 01/19/19 08:36 Flush - Normal Saline IVF 10 ml Q12HR PRN Administration Saline Flush - Exam Eye: PERRL, anicteric sclera Heart: RRR, no murmur, no gallops, no rubs, normal peripheral pulses Respiratory: CTAB, no wheezes, no rales, no ronchi, normal chest expansion Gastrointestinal: soft, non-tender, non-distended, normal bowel sounds Extremities: no edema Hosp A/P (1) Obstipation Code(s): K59.00 - CONSTIPATION, UNSPECIFIED Status: Acute (2) Large B-cell lymphoma Code(s): C85.10 - UNSPECIFIED B-CELL LYMPHOMA, UNSPECIFIED SITE Status: Acute (3) Hypertension Code(s): I10 - ESSENTIAL (PRIMARY) HYPERTENSION Status: Acute (4) Diabetes mellitus type 2 in nonobese Code(s): E11.9 - TYPE 2 DIABETES MELLITUS WITHOUT COMPLICATIONS Status: Chronic - Plan * Partial small bowel obstruction- continue conservative management in hopes of spontaneous resolution * Lymphoma- will defer management to Oncology * HTN- blood pressure is controlled * DM- blood glucose is stable
--- NOTE | 2019-01-20 15:30 | EKG ---
Test Reason : Blood Pressure : / mmHG Vent. Rate : 082 BPM Atrial Rate : 082 BPM P-R Int : 112 ms QRS Dur : 076 ms QT Int : 380 ms P-R-T Axes : 045 028 -23 degrees QTc Int : 443 ms Normal sinus rhythm Left atrial enlargement Nonspecific ST and T wave abnormality Abnormal ECG Confirmed by MICAELA RAMOS, ALENA Loving ([id number]), associate entertainment editor KODY FUNK ([id number]) on 01/20/2019 3:30:07 PM Referred By: Confirmed By:ALENA HINOJOSA MD
[2019-01-20] MEDS: Enoxaparin Sodium 40 MG/0.4 ML SYRINGE SC SCH (20:09)
[2019-01-20] MEDS: Atorvastatin Calcium 10 MG TAB PO SCH (20:10)
--- NOTE | 2019-01-20 21:09 | PRG ---
DATE OF SERVICE: 01/20/2019 SUBJECTIVE: Mr. Madison remains in the hospital on the medical floor. He has a large abdominal mass secondary to lymphoma. He was admitted to the hospital 3 days ago. He denies vomiting, but also notes that he had no bowel movement today. His x-rays at the time of admission did not reveal having a significant obstructive appearance. He is receiving a regular narcotic medication for what he describes as severe abdominal pain related to his tumor. He is receiving morphine 4 mg every 4 hours. He is also receiving MiraLAX twice per day. OBJECTIVE: VITAL SIGNS: He is afebrile. Vital signs are normal. ABDOMEN: Benign. He does have a palpable mass in his abdomen and a well-healed midline incision. ASSESSMENT: I doubt that he has any true obstructive component. I suspect that he has narcotic-associated constipation. He will continue his MiraLAX. Hopefully, this will be enough to overcome the effects of his morphine. Job ID: [id number]
[2019-01-21] MEDS: HYDROcodone/Acetaminophen 10/325 mg Tablet PO PRN ×3 (02:05→17:13)
[2019-01-21] MEDS: Morphine 4 MG/ML VIAL SLOW IVP PRN (05:13)
[2019-01-21] MEDS: Piperacillin/Tazobactam 3.375 GM in Sodium Chloride 0.9% 100 ML IVPB SCH ×3 (05:13→17:10)
[2019-01-21 07:34] LABS: Mean Corpuscular HGB CONC 32.5 g/dL (32.0-36.0); Mean Corpuscular Hemoglobin 28.6 pg (27.0-31.0); Mean Platelet Volume 8.6 fL (7.4-10.4); Platelet Count 153 thou/uL (130-400); RBC Distribution Width 14.4 % (11.5-14.5); Red Blood Cell (RBC) Count 4.18 mill/uL (4.70-6.10); White Blood Cell (WBC) Count 5.5 thou/uL (4.8-10.8)
[2019-01-21 07:43] LABS: ALT (SGPT) 12 U/L (8-55); AST (SGOT) 18 U/L (5-34); Albumin 3.6 g/dL (3.4-4.8); Alkaline Phosphatase 198 U/L (40-150); Anion Gap 14 mmol/L (10-20); BUN (Urea Nitrogen) 10 mg/dL (8.4-25.7); Bilirubin, Total 0.6 mg/dL (0.2-1.2); Calc. Creatinine Clearance 54 mL/min (70-130); Calcium 9.6 mg/dL (7.8-10.44); Carbon Dioxide 24 mmol/L (23-31); Chloride 103 mmol/L (98-107); Estimated GFR-MDRD 70; Globulin 3.2 g/dL (2.4-3.5); Glucose 144 mg/dL (83-110); Magnesium 1.9 mg/dL (1.6-2.6); Potassium 3.8 mmol/L (3.5-5.1); Protein, Total 6.8 g/dL (5.8-8.1); Sodium 137 mmol/L (136-145); Uric Acid 3.3 mg/dL (3.5-7.2)
[2019-01-21] MEDS: Lisinopril 10 MG TAB PO SCH (08:04)
[2019-01-21] MEDS: Famotidine/PF 20 mg/2ml Vial SLOW IVP SCH (08:04)
[2019-01-21] MEDS: Senokot S 8.6-50 MG TAB PO SCH (08:04)
[2019-01-21] MEDS: Polyethylene Glycol 3350 17 GM Packet PO SCH (08:05)
[2019-01-21 08:22] LABS: Band 32 % (5-11); Eosinophils 1 % (0-10); Lymphocytes 21 % (21-51); MDiff Complete? YES; Metamyelocyte 1 % (0-0); Monocytes 9 % (0-10); Neutrophil 35 % (42-75); RBC Morphology Normal
--- NOTE | 2019-01-21 08:36 | PRG ---
DATE OF SERVICE: 01/20/2019 SUBJECTIVE: Mr. Pérez Madison is a 78-year-old male diagnosed with abdominal lymphoma recently. He had a laparotomy and it was felt that surgery is not possible because of extensive involvement of the bowel with lymphoma. He has had one cycle of chemotherapy. He has also abdominal pain and CAT scan findings what appears to be bowel obstruction. However, he is tolerating clear liquid diet and also on Ensure. He safely keeps them down. He has no nausea. No vomiting. Passing flatus, but did not have any bowel movements. Basically,he has been on clear liquid diet and on Ensure. He seems to take the Ensure 3 times a day. PHYSICAL EXAMINATION: GENERAL: Appears very comfortable, in no acute distress. VITAL SIGNS: Stable. Afebrile, pulse is 70, and blood pressure 143/59. CARDIOVASCULAR SYSTEM: Lungs within normal limits. ABDOMEN: Mildly distended over right lower quadrant. Abdomen is soft and nontender. He has a large mass over the right lower quadrant, lumbar area . CLINICAL IMPRESSION: 1. Abdominal lymphoma, status post chemotherapy x1. 2. Abdominal pain and findings of bowel obstruction. However, clinical picture has no sign of obstruction at the present time. He is passing flatus. He is not having bowel movements, although he is on MiraLAX. RECOMMENDATIONS: 1. Advance diet to ADA diet. 2. Add lactulose 30 mL every 6 hours to promote bowel movements. Job ID: [id number]
--- NOTE | 2019-01-21 10:11 | PRG ---
DATE OF SERVICE: 01/21/2019 SUBJECTIVE: Mr. Madison is doing well today. He has had a bowel movement. He is tolerating his diet. Dr. Viki Araya has seen him. He does not have any abdominal distention. OBJECTIVE: VITAL SIGNS: Blood pressure 143/59 and temperature 97.4 degrees. HEAD, EARS, EYES, NOSE, AND THROAT: Unremarkable. LUNGS: Clear to auscultation. CARDIAC: Regular rate and rhythm without murmur or gallop. ABDOMEN: Soft, nontender, and nondistended. ASSESSMENT AND PLAN: Intraabdominal lymphoma. Perhaps possible partial bowel obstruction, but no surgical intervention necessary. He has had a bowel movement. He is tolerating his diet. I would recommend discharge home anytime. I will see him as needed. Avoid narcotics at home. I would be inclined to take Tylenol and ibuprofen only. Avoid narcotics. Take MiraLAX twice a day, Citrucel once a day. Eat a low-fiber soft diet for the next few weeks until his lymphoma responds to treatment. Job ID: [id number]
[2019-01-21 16:17] VITALS: BP 125/72; TEMP 98.1
--- NOTE | 2019-01-21 18:49 | PRG ---
DATE OF SERVICE: 01/21/2019 SUBJECTIVE: This 78-year-old male hospitalized with abdominal pain and findings of his bowel obstruction on x-rays. However, the physical findings do not support diagnosis of small-bowel obstruction. His diet was advanced to a diabetic diet yesterday. He is tolerating diet. He is also started on lactulose yesterday. He has had 2 or 3 large stools today. He is tolerating diet. No abdominal pain. No nausea or vomiting. PHYSICAL EXAMINATION: GENERAL: Appears comfortable. VITAL SIGNS: Stable. Afebrile. Pulse is 84, blood pressure is 125/72. HEENT: Conjunctivae clear. CARDIOVASCULAR SYSTEM: First and second heart sounds normal. LUNGS: Clear to auscultation. ABDOMEN: Soft. He does have a mass over the right lower quadrant. Abdomen is nontender. His bowel sounds active. RECOMMENDATION: From a GI standpoint, he can be discharged home on lactulose 30 mL p.o. twice a day. The patient is to contact us if he has any abdominal pain, nausea, or vomiting. We will sign off from today, and if there are any new problems, please call me back. Job ID: [id number]
--- NOTE | 2019-01-21 23:30 | DIS ---
DATE OF ADMISSION: 01/17/2019 DATE OF DISCHARGE: 01/21/2019 DISCHARGE DIAGNOSES: 1. Partial small bowel obstruction secondary to lymphoma. 2. Obstipation/constipation, secondary to #1, improved. 3. Large B-cell lymphoma. 4. Hypertension, stable. 5. Diabetes mellitus type 2. CONSULTATIONS: 1. Dr. Winters and Dr. Araya with Medical Oncology Service. 2. Dr. Latif with General Surgery Service. 3. Dr. Almonte with GI Service. PERTINENT LAB AND X-RAY FINDINGS: Uric acid level ranged between 2.5 to 3.4. LFTs within normal limits. Albumin 3.6, lipase 24. CBC showed white blood cell count ranged between 3.9 to 25.6, hemoglobin ranged between 10.4 to 12.0, platelet count ranged between 84 to 153. Urine culture dated 01/17/2019, showed 50,000 to 75,000 colonies of beta-hemolytic Streptococcus. Blood cultures x2 dated 01/17/2019, showed no growth at [address] of the chest, abdomen, and pelvis with aortic dissection protocol showed no evidence of stenosis, occlusion, or aneurysm. Persistent pericolonic mass involving the proximal sigmoid colon, moderate amounts of retained stool noted, mild dilation of the small bowel, periaortic retroperitoneal lymphadenopathy. Abdominal radiographs dated 01/19/2019, showed low-grade small-bowel obstruction. HOSPITAL COURSE: The patient was initially admitted after presenting with increasing abdominal pain with a history of large B-cell lymphoma under current chemotherapy treatment. The patient underwent extensive evaluation including abdominal imaging showing evidence of obstructive process with partial small bowel obstruction. The patient was noted with large amounts of retained stool and placed on bowel stimulants and stool softeners. The patient had successful bowel movement with aggressive bowel regimen and overall clinically stabilized in regard to abdominal pain. The patient was evaluated by the GI and General Surgery Service; however, no specific acute intervention was recommended. The patient was tolerating regular oral intake and ambulating without assistance or difficulty. The patient exhibited stable vital signs and remained clinically stable. I have examined the patient at the time of discharge and discussed followup instructions. The patient verbalized understanding and in agreement and ready for discharge on 01/21/2019. DISCHARGE MEDICATIONS: 1. Allopurinol 100 mg p.o. daily. 2. Lisinopril 10 mg p.o. daily. 3. Lovastatin 40 mg p.o. at bedtime. 4. Toprol-XL 50 mg p.o. daily. 5. Omeprazole 20 mg p.o. daily. 6. Citrucel 500 mg p.o. daily. 7. MiraLAX 17 g p.o. b.i.d. FOLLOWUP: The patient may follow up with his primary care provider, Dr. Venus Almonte within 7 days of discharge. The patient will follow up with Dr. Viki Araya and to call our office for appointment time and date. CONDITION ON DISCHARGE: Stable. ACTIVITY: Ad-felix. DIET: Low-fiber soft diet x3 weeks. CODE STATUS: Full. DISPOSITION: To home, 01/21/2019. TIME SPENT: Total time preparing and coordinating discharge, 32 minutes. Job ID: [id number]
== END 2019-01-21 18:52 | disposition home or self-care (01) | DRG 842 ==
LOC: ERS 17:45 → OBSVTOIN 21:15 → T4-B 21:15
PROVIDERS: ADMIT Internal Medicine; ATTEND Internal Medicine
DX: C83.33 Diffuse large B-cell lymphoma, intra-abdominal lymph nodes (principal); E11.9 Type 2 diabetes mellitus without complications; D72.829 Elevated white blood cell count, unspecified; E78.5 Hyperlipidemia, unspecified; T45.8X5A Adverse effect of other primarily systemic and hematological agents, initial encounter; I10 Essential (primary) hypertension; K59.03 Drug induced constipation; T40.605A Adverse effect of unspecified narcotics, initial encounter; Z85.46 Personal history of malignant neoplasm of prostate; I25.2 Old myocardial infarction; Z79.899 Other long term (current) drug therapy; R63.6 Underweight; Z68.27 Body mass index [BMI] 27.0-27.9, adult
CPT/HCPCS: 36415; 36416; 71275; 74019; 74177; 80048; 80053; 81003; 81015; 82550; 83605; 83690; 83735; 84100; 84550; 85025; 86850; 86900; 86901; 87040; 87086; 93005; 96361; 96365; 96368; 96374; 96375; J1650; J2185; J2270; J2405; J2543; J3370; J3490; Q9966; S0028

== ENCOUNTER 2019-02-10 16:59 | Inpatient (IN) | payer MEDICARE ==
--- NOTE | 2019-02-10 18:24 | RAD ---
Chest AP view INDICATION: History of lymphoma with low O2 sats and hypotension COMPARISON: CT aortic dissection protocol dated January 09, 2019 FINDINGS: Lungs:There are scattered emphysema. There is new patchy airspace opacity in the region of the lingul a and/or left lower lobe suspicious for pneumonia. There is a right chest wall port in place. Cardiac silhouette pulmonary vasculature:The cardiomediastinal silhouette appears within normal limit s. Pleural spaces:No pleural effusion or pneumothorax is demonstrated. Upper abdomen:No abnormality seen. Osseous structures: No acute osseous abnormality. Additional findings:None. IMPRESSION: 1. Patchy airspace opacity in the region of the lingula and/or left lower lobe suspicious for pneumon ia. 2. COPD change
[2019-02-10 18:41] LABS: Hemoglobin 9.5 g/dL (14.0-18.0); Mean Corpuscular HGB CONC 32.7 g/dL (32.0-36.0); Mean Corpuscular Hemoglobin 28.6 pg (27.0-31.0); Mean Corpuscular Volume 87.3 fL (78.0-98.0); Mean Platelet Volume 7.5 fL (7.4-10.4); Platelet Count 241 thou/uL (130-400); RBC Distribution Width 14.4 % (11.5-14.5); Red Blood Cell (RBC) Count 3.31 mill/uL (4.70-6.10); White Blood Cell (WBC) Count 9.6 thou/uL (4.8-10.8)
[2019-02-10 19:00] LABS: ALT (SGPT) 11 U/L (8-55); AST (SGOT) 13 U/L (5-34); Albumin 3.2 g/dL (3.4-4.8); Alkaline Phosphatase 91 U/L (40-150); Anion Gap 13 mmol/L (10-20); BUN (Urea Nitrogen) 26 mg/dL (8.4-25.7); Bilirubin, Total 0.4 mg/dL (0.2-1.2); Calc. Creatinine Clearance 0 mL/min (70-130); Calcium 8.3 mg/dL (7.8-10.44); Carbon Dioxide 22 mmol/L (23-31); Chloride 105 mmol/L (98-107); Estimated GFR-MDRD Greater than 90; Globulin 2.2 g/dL (2.4-3.5); Glucose 102 mg/dL (83-110); Potassium 3.8 mmol/L (3.5-5.1); Protein, Total 5.4 g/dL (5.8-8.1); Sodium 136 mmol/L (136-145)
[2019-02-10 19:09] LABS: Band 39 % (5-11); Eosinophils 2 % (0-10); Lymphocytes 11 % (21-51); MDiff Complete? YES; Monocytes 9 % (0-10); Neutrophil 37 % (42-75); Platelet Morphology Comment Appears Adequate; Polychromasia SLIGHT = 2-3 cells (100X) (0-2/hpf); Reactive Lymphocytes 2 % (0-10)
[2019-02-10] MEDS ORDERED: cefTRIAXone\\ROCEPHIN 2 GM VIAL ONE (19:33)
[2019-02-10] MEDS ORDERED: Fentanyl 100 MCG/2 ML VIAL ONE (19:58)
[2019-02-10] MEDS ORDERED: Ondansetron PF 4 MG/2 ML Vial IVP PRN (20:00)
[2019-02-10] MEDS ORDERED: Ondansetron ODT 4 MG TAB PO PRN (20:00)
[2019-02-10] MEDS ORDERED: Acetaminophen 650 MG Suppository PR PRN (20:00)
[2019-02-10 20:13] LABS: Actual Bicarbonate (HCO3a) 19.2 mEq/L (22-28); Analyzer IN Cardio ER; Base Excess (BEa) -0.6 mEq/L (-2.0 to +3.0); Calcium, Ionized 1.08 mmol/L (1.12-1.30); Carboxyhemoglobin (COHb) 0.3 gm% (0.0-3.0); Hemoglobin (Hb) 9.6 g/dL (14.0-18.0); O2 Tension (PaO2) 93.7 mmHg (> 70.0); Potassium - ABG Lab 3.87 mmol/L (3.70-5.30); pH, Arterial 7.63 (7.35-7.45)
[2019-02-10 20:14] LABS: ALV-art Gradient 32.905 (0-20); CO2 Tension 18.5 mmHg (35.0-45.0); Puncture Site RRA
[2019-02-10 20:24] LABS: Bilirubin Negative (Negative); Blood, Urine Negative (Negative); Clarity Clear (Clear); Glucose, Urine (Dipstick) Normal (Negative); Leukocyte Negative Leu/uL (Negative); Nitrite Negative (Negative); Protein, Urine (Dipstick) 30 mg/dL (Neg-Trace); Squamous Epithelial 0-3 HPF (0-3); Urobilinogen Normal mg/dL (Less than 2); WBC/HPF 0-3 HPF (0-3)
--- NOTE | 2019-02-10 20:29 | ULT ---
SCROTAL ULTRASOUND: 02/10/19 COMPARISON: None. HISTORY: 78-year-old male with bilateral scrotal pain. TECHNIQUE: Multiplanar loja scale sonographic imaging of the scrotal contents with alpha interrogation of the te sticles including color flow and spectral analysis. FINDINGS: There is a 3.0 x 1.0 x 1.6 cm complex septated cyst area within the testicle demonstrating findings m ost consistent with benign ectasia of the Rete testis. There is a epididymal head cyst on the right m easuring 1.8 x 1.0 x 1.5 cm. There is normal symmetric blood flow within both testicles. Left epididymis could not be visualized. Right testicle measures 2.6 x 4.1 x 2.6 cm and left testicle measures 2.4 x 4.6 x 1.3 cm. IMPRESSION: Right epididymal cyst. No evidence for testicular torsion. POS: GRETCHEN
[2019-02-10 20:36] LABS: Bacteria/HPF None Seen HPF (None Seen)
--- NOTE | 2019-02-10 21:27 | CT ---
CTA Angio Chest W WO Con 02/10/2019 12:00 AM Indication: 78-year-old male with history of lymphoma and shortness of breath Technique: Multiple CTA images were obtained of the thorax with IV contrast. 3D reformatted images were constructed from the raw data. Comparison: CT aortic dissection protocol dated January 17, 2019 Findings: Pulmonary arteries: No central or segmental pulmonary embolus is evident. Heart and Great Vessels: Normal appearing. Lungs:There are waxing and waning areas of peripheral tree-in-bud nodularity. There is severe emphyse ma. There is areas of subsegmental volume loss within the anterior medial left lower lobe Pleural space: Clear. Upper Abdomen: No acute abnormality. Osseous Structures: No acute osseous abnormality. There is stable superior endplate compression defo rmity of T11. There is diffuse osteopenia. Impression: 1. No central or segmental pulmonary embolus. 2. Waxing and waning areas of peripheral tree-in-bud nodularity suspicious for peripheral bronchioli tis. There are areas of subsegmental volume loss within the anterior medial left lower lobe is likely related to the peripheral airways disease. 3. Stable emphysema
[2019-02-10] MEDS: Cefepime 1 GM in Sodium Chloride 0.9% 100 ML IVPB SCH (22:16)
[2019-02-10] MEDS: Sodium Chloride 0.9% 1,000 ML IV SCH (22:24)
[2019-02-10] MEDS: Vancomycin HCl 1 GM in Premix Bag 1 BAG IVPB SCH (22:24)
[2019-02-10 23:10] VITALS: BMI 20.9
[2019-02-11] MEDS ORDERED: HumaLOG 300 UNITS/3 ML VIAL SC PRN (02:55)
[2019-02-11] MEDS ORDERED: Dextrose 5% in Water 1,000 ML IV PRN (02:55)
[2019-02-11] MEDS ORDERED: Dextrose 50% Abboject 50 ML SYRINGE SLOW IVP PRN (02:55)
[2019-02-11] MEDS: Acetaminophen 325 MG TAB PO PRN ×4 (03:29→18:53)
--- NOTE | 2019-02-11 04:03 | HP ---
PRIMARY CARE DOCTOR: Venus Almonte MD. CODE STATUS: Full code. TIME OF EVALUATION: 8:10 p.m. CHIEF COMPLAINT: Shortness of breath. HISTORY OF PRESENT ILLNESS: This is a 78-year-old male patient with a past medical history of lymphoma, also history of coronary artery disease, diabetes type 2, hyperlipidemia, hypertension, treated with chemotherapy and surgery, came to the hospital after having severe gradually worsening shortness of breath with no clear triggers. No alleviating factors. The patient went into respiratory distress, needing BiPAP support. He has no history of COPD. When he went to visit Dr. Breaux today, he was found to be hypotensive with saturation in the 80s and for that reason, he was transferred here to the hospital. Notes he also has testicular pain and dysuria. Symptoms started suddenly and rapidly progressed to be very severe. REVIEW OF SYSTEMS: All systems were reviewed and negative except for the findings mentioned in the HPI. PAST MEDICAL HISTORY: As mentioned in the HPI. PAST SURGICAL HISTORY: Surgical attempt to remove tumor. PSYCHIATRIC HISTORY: No previous psych history. SOCIAL HISTORY: No alcohol, no drugs, no smoking history. FAMILY HISTORY: Reviewed, noncontributory to current presentation. KNOWN ALLERGIES: Tramadol. REPORTED MEDICATIONS: 1. Lisinopril. 2. Lovastatin. 3. Allopurinol. 4. Metoprolol. 5. Omeprazole. PHYSICAL EXAMINATION: VITAL SIGNS: On presentation, blood pressure 120/51, heart rate 89, respiratory rate was 37, temperature 98.4, oxygen saturation 100% on nonrebreather. Patient needed a BiPAP and then finally was able to tolerate room air after initial treatment. GENERAL APPEARANCE: The patient was alert, oriented, in respiratory distress during my examination. This got better after initial treatment in ER. HEENT: Eyes, normal conjunctivae, dry oral mucosa, anicteric. No JVD. RESPIRATORY: Bilateral air entry is decreased. The patient has wheezing, no rales bilaterally. Bilateral air entry. CARDIOVASCULAR: Normal rate, regular rhythm. No murmurs. No gallop. No edema. ABDOMEN: Soft, normal bowel sounds. MUSCULOSKELETAL: Baseline range of motion and strength. SKIN: Warm, intact. No pallor. No rash. No redness. Capillary refill seems to be intact. NEURO: No evidence of any new focal weakness. Cranial nerves seem to intact. DIAGNOSTIC DATA: EKG was reviewed, shows atrial fibrillation with RVR at the rate of 106 on presentation. Per Radiology, testicular ultrasound shows right ____ cecal torsion. Labs were reviewed. The patient has white count of 9.6, hemoglobin 9.5, MCV 87.3, platelet count 241, neutrophils 87, bands 39, lymphocytes 11. ABG was done with pH 7.63 and pCO2 of 18.5, pO2 of 97.3. Sodium 136, potassium 3.8, chloride 105, carbon dioxide 22, anion gap 13, BUN 26, creatinine 0.8, GFR greater than 90, glucose 102, lactic acid 1.2, calcium 9.3, total bilirubin 0.4. LFTs were negative. Albumin 3.2, globulin 2.2. Urine was done was negative for infection. ASSESSMENT AND PLAN: The patient will be placed in the hospital with following medical problems. 1. Community acquired Pneumonia, seen on chest x-ray. The patient received broad-spectrum antibiotics. proper hydration. Oxygen support. We will monitor, treat accordingly. 2. Sepsis. The patient has tachypnea, tachycardia, and also source is pneumonia. The patient on antibiotics. We will treat as above. 3. Respiratory alkalosis secondary to hypoxia due to pneumonia. We will treat underlying condition. Patient improved on BiPAP and also tolerated nasal cannula now. 4. Chronic normocytic anemia. This could be secondary to underlying cancer. This can be followed as outpatient. 5. History of lymphoma. This is chronic, follow with Dr. Araya as outpatient. 6. History of coronary artery disease. This problem is chronic, seems to be stable. Reconcile home medications. 7. Controlled diabetes, reconcile home medications. Start the patient on sliding scale for optimal control. 8. Controlled hypertension, reconcile home medication, chronic, seems to be stable. 9. Hyperlipidemia. Low-cholesterol diet is advised. Continue lovastatin. 10. History of gastroesophageal reflux disease. Continue omeprazole. 11. Deep venous thrombosis prophylaxis. Job ID: [id number] [facility]
[2019-02-11 05:17] LABS: Anion Gap 12 mmol/L (10-20); BUN (Urea Nitrogen) 17 mg/dL (8.4-25.7); Calc. Creatinine Clearance 69 mL/min (70-130); Calcium 8.1 mg/dL (7.8-10.44); Carbon Dioxide 21 mmol/L (23-31); Chloride 108 mmol/L (98-107); Estimated GFR-MDRD Greater than 90; Glucose 114 mg/dL (83-110); Potassium 3.8 mmol/L (3.5-5.1); Sodium 137 mmol/L (136-145)
[2019-02-11 05:44] LABS: Band 34 % (5-11); Dohle Bodies SLIGHT; Eosinophils 2 % (0-10); Hemoglobin 8.7 g/dL (14.0-18.0); Lymphocytes 5 % (21-51); MDiff Complete? YES; Mean Corpuscular HGB CONC 32.3 g/dL (32.0-36.0); Mean Corpuscular Hemoglobin 28.1 pg (27.0-31.0); Mean Platelet Volume 7.3 fL (7.4-10.4); Monocytes 4 % (0-10); Neutrophil 55 % (42-75); Platelet Count 263 thou/uL (130-400); RBC Distribution Width 14.7 % (11.5-14.5); Toxic Granulation SLIGHT; White Blood Cell (WBC) Count 11.9 thou/uL (4.8-10.8)
[2019-02-11] MEDS ORDERED: Non-Formulary Item 1 EACH (Omeprazole [Omeprazole] 20 MG) PO SCH (09:00)
[2019-02-11] MEDS ORDERED: Prevnar 13-Val Conj/PF 0.5 ML SYRINGE IM ONE (09:00)
[2019-02-11] MEDS: Cefepime 1 GM in Sodium Chloride 0.9% 100 ML IVPB SCH ×2 (10:00→20:50)
[2019-02-11] MEDS: Citrucel 500 MG TAB PO SCH (10:01)
[2019-02-11] MEDS: Polyethylene Glycol 3350 17 GM Packet PO SCH ×2 (10:02→20:48)
[2019-02-11] MEDS: Allopurinol 100 MG TAB PO SCH (10:03)
[2019-02-11] MEDS: Tamsulosin HCl 0.4 MG CAP PO SCH (10:03)
[2019-02-11] MEDS: Lisinopril 10 MG TAB PO SCH (10:03)
[2019-02-11] MEDS: Sodium Chloride 0.9% 1,000 ML IV SCH (10:05)
[2019-02-11] MEDS: Vancomycin HCl 1 GM in Premix Bag 1 BAG IVPB SCH (11:05)
--- NOTE | 2019-02-11 11:48 | PRG ---
DATE OF SERVICE: 02/11/2019 SUBJECTIVE: The patient was seen and examined at bedside. He feels significantly better. His shortness of breath improved to the point that he does not require any oxygen. He ate his breakfast. OBJECTIVE: VITAL SIGNS: Blood pressure is 107/82, pulse is 68, respiratory rate is 14, O2 saturation is 100% without oxygen, and maximal temperature was 99.8. HEENT: His head is atraumatic and normocephalic. Eyes are PERRLA. Sclerae are nonicteric. Oral mucosa is moist. NECK: Supple. LUNGS: With some rales at the left base. HEART: S1, S2 normal. No S3. No S4. ABDOMEN: Soft. Mildly tender in the right part of the abdomen. No guarding. No masses. EXTREMITIES: No clubbing, cyanosis, or edema. NEUROLOGIC: He is alert and oriented x4. There is no any motor or sensory deficits. Cranial nerves are intact. LABORATORY DATA: Labs showed white count of 11.9, hemoglobin 8.7, hematocrit 27.0, platelet count 263,000, and 34 bands. Sodium of 137, potassium 3.8, chloride 108, CO2 of 21, BUN 17, creatinine 0.76, glucose 114, and calcium 8.1. Microbiology, two blood cultures negative for growth. IMPRESSION: 1. Fever with some shortness of breath and left lower lobe and middle lobe changes on the CT angiogram suspicious for infectious etiology. I will stop vancomycin. We will continue cefepime. We will see what transit man recommends. 2. Urinary retention. The patient has a history of prostate cancer and radiation in the past. The Pascal catheter was placed in the emergency room, and we will continue his Flomax. He will have to have follow up with urologist after his discharge from the hospital. 3. Chronic normocytic anemia. 4. History of lymphoma. 5. History of coronary artery disease, chronic, stable. 6. Diabetes mellitus, chronic, stable. 7. Hypertension, chronic, stable. 8. Hyperlipidemia, chronic, stable. PLAN: As mentioned above. Discontinue vancomycin. Continue cefepime. Waiting for transit man to see the patient. He had a testicular ultrasound done, which showed epididymal cyst, which does not need to be treated at this point. We will await transit man input. Job ID: [id number]
[2019-02-11] MEDS ORDERED: Bisacodyl 5 MG TAB PO SCH (13:15)
[2019-02-11] MEDS ORDERED: predniSONE 20 MG TAB PO SCH (13:15)
--- NOTE | 2019-02-11 14:14 | CON ---
DATE OF CONSULTATION: REASON FOR CONSULTATION: Diffuse large B-cell lymphoma. HISTORY OF PRESENT ILLNESS: Mr. Madison is a pleasant 78-year-old gentleman with stage III diffuse large B-cell lymphoma. He is consistent with double hit. He has received 2 cycles of CVP-R. His last cycle was on February 02. He has done well, but has complained of increased constipation throughout treatment. He presented to our clinic yesterday with complaints of weakness, difficulty urinating, and testicular pain. His heart rate was elevated. He did receive IV fluids. Urinalysis was sent and was negative. His Flomax was refilled. He was discharged to follow up should he feel worse. He then presented to the emergency room yesterday evening for shortness of breath. He was placed on BiPAP and had a CT angio of the chest, which was negative for PE. His chest x-ray showed possible pneumonia. He was admitted and started on antibiotics. He did have a testicular ultrasound, which was negative for torsion. He was examined at bedside. His BiPAP has been removed. He denies any chest pain or shortness of breath. His primary complaint remains constipation. PAST MEDICAL HISTORY: 1. Stage III diffuse large B-cell lymphoma. 2. Coronary artery disease. 3. Cardiomyopathy with an EF of 39%. 4. Diabetes. 5. High blood pressure. 6. History of RI. 7. High cholesterol. 8. Acid reflex. PAST SURGICAL HISTORY: Biopsy. ALLERGIES: TRAMADOL. HOME MEDICATIONS: 1. Allopurinol daily. 2. Lisinopril daily. 3. Lovastatin daily. 4. Toprol-XL daily. 5. Prilosec daily. 6. Flomax daily. 7. Citrucel daily. 8. MiraLAX daily. FAMILY HISTORY: Three brothers have unknown type of cancer. SOCIAL HISTORY: , lives with his spouse. A 60 pack-year history of smoking. No alcohol or illicit drug use. REVIEW OF SYSTEMS: A 10-point review of systems is negative except for noted in HPI. PHYSICAL EXAMINATION: VITAL SIGNS: Temperature 98.2, pulse is 68, respiratory rate 14, blood pressure is 107/82, and he is 100% on nasal cannula. PERTINENT LABORATORY DATA AND X-RAYS: Current WBCs are 11.9, hemoglobin 8.7, hematocrit 27.0, platelet count 263,000, 55% neutrophils, 34% bands, and 5% lymphocytes. Sodium 137, potassium 3.8, chloride 108, CO2 is 21, BUN is 17, creatinine 0.76, lactic acid 1.2, calcium 8.1. Bilirubin 0.4, AST is 13, ALT is 11, alkaline phosphatase is 91, serum total protein 54, albumin 3.2, and globulin 1.5. Urine is negative for bacteria. Radiology per HPI. ASSESSMENT: 1. Stage III diffuse large B-cell lymphoma, status post cycle 2 of CVP-R chemotherapy with Neulasta support. 2. Acute respiratory distress. 3. Constipation. DISCUSSION: The patient has improved dramatically overnight and is currently on a nasal cannula. He is receiving antibiotics for suspected pneumonia. He has received MiraLAX for constipation, but states that Dulcolax works better. We will add that to his regimen. His bands are likely secondary to Neulasta given after chemotherapy. Thank you for the consult. We will follow along with his hospital course. Job ID: [id number]
--- NOTE | 2019-02-11 15:31 | PQF ---
CLINICAL DOCUMENTATION IMPROVEMENT CLARIFICATION FORM: ICD-10 Updated PLEASE DO AN ADDENDUM TO THE PROGRESS NOTE WITH ANY DOCUMENTATION UPDATES OR ADDITIONS AND CARRY THROUGH TO DC SUMMARY. THANK YOU. DATE: 02/11/19 ATTN: DR. ROWLAND Please exercise your independent, professional judgment in responding to the clarification form. Clinical indicators are provided on the bottom of this form for your review Please check appropriate box(s): [ ] Acute Respiratory Failure: [ ] with Hypoxia[ ] with Hypercapnia [ ] Acute On Chronic Respiratory Failure: [ ] with Hypoxia [ ] with Hypercapnia [ ] Acute Respiratory Failure due to: (etiology) [ ] ARDS (Acute Respiratory Distress Syndrome) [ ] Chronic Respiratory Failure only [ ] with Hypoxia [ ] with Hypercapnia [ ] Hypoxia [ ] Other diagnosis [ ] Unable to determine In addition, please specify: Present on Admission (POA): [ ] Yes [ ] No [ ] Unable to determine For continuity of documentation, please document condition throughout progress notes and discharge summary. Thank You. CLINICAL INDICATORS - SIGNS / SYMPTOMS / LABS ER NOTE: "...EVALUATED BY DR. FLYNN WHO NOTICED PT WAS HYPOTENSIVE WITH LOW O2 SATS" "DIMINISHED BREATH SOUNDS BILATERALLY WITH CRACKLES" RR 37 RISKS: PNEUMONIA TREATMENT: BIPAP DUONEBS (ER-PRESENT) IV ROCEPHIN (ER) IV MAXIPIME (02/10-PRESENT) IV VANCOMYCIN (02/10-02/11) PREDNISONE (02/11-PRESENT) IMCU MONITORING (This form is maintained as a part of the permanent medical record) 2014 [employer]. All Rights Reserved [employer]
--- NOTE | 2019-02-11 17:02 | CON ---
DATE OF CONSULTATION: 02/11/2019 SERVICE: Pulmonary Medicine. REASON FOR CONSULTATION: CU patient. HISTORY OF PRESENT ILLNESS: The patient is a very pleasant 78-year-old white male with past medical history significant for lymphoma. He was sitting on his front porch, watching some people work in his front yard. He was rocking in a rocking chair. In that situation, he had abrupt onset of wooziness, shortness of breath , and change in vision. He told his oncologist about this and she directed him to the emergency department for additional diagnostic evaluation. He denies any current fevers or chills. He was not having any cough, sputum production, nausea, vomiting, or diarrhea. He was otherwise in his usual state of health. Per his recollect, this came on quite suddenly. PAST MEDICAL HISTORY: 1. Lymphoma. 2. Coronary artery disease. 3. Type 2 diabetes mellitus. 4. Hypertension. 5. Dyslipidemia. PAST SURGICAL HISTORY: Laparotomy for removal of tumor, but it was quite extensive, so a biopsy was taken as close backup. SOCIAL HISTORY: Negative for alcohol, tobacco, or illicit drug use. He has no exposure to chemicals, dust, asbestos, or tuberculosis. FAMILY HISTORY: Noncontributory. ALLERGIES: TRAMADOL. MEDICATIONS: List of the patient's inpatient medications were reviewed. No specific updates were made at this time. REVIEW OF SYSTEMS: General; head, ears, eyes, nose, and throat; cardiovascular; respiratory; GI; ; musculoskeletal; neurologic; and skin is negative except as mentioned in the HPI. PHYSICAL EXAMINATION: VITAL SIGNS: Afebrile, pulse 68, blood pressure 107/82, respirations 14, and saturation 100% currently on room air. GENERAL: The patient is awake and alert, in no apparent distress. LUNGS: There is decreased air entry. There is a slightly prolonged expiratory phase, but I do not hear any wheezing. Rhonchi are present. No dependent crackles are appreciated. HEART: Normal rate, regular. ABDOMEN: Soft, nontender, and nondistended. Bowel sounds are positive. MUSCULOSKELETAL: No cyanosis or clubbing. No pitting in the bilateral lower extremities. NEUROLOGIC: Grossly nonfocal. LABORATORY DATA: WBC 11.9, hemoglobin 8.7, and platelets 263,000. Band count is 34% on top of 55% neutrophils. A pH 7.63, pCO2 of 18, pO2 of 93, bicarb 21, anion gap has improved to 12. Basic metabolic profile and liver function studies are unremarkable otherwise. Lactate is 1.2. Calcium 8.1. Troponin is negative x1. TSH is also unremarkable at 1.09. Urinalysis is unremarkable except for microscopic hematuria, minimal ketonuria, and proteinuria. Blood cultures x2 are unremarkable. IMAGING STUDIES: 1. CTA of the chest demonstrates no evidence of an obvious pulmonary embolism. There is emphysema identified throughout bilateral lung zepeda. There are also areas of cystic changes. Minimal tree-in-bud opacifications are present in the dependent basilar regions. Bronchiectasis is noted. This is particularly true in the dependent regions. 2. Testicular ultrasound demonstrates a right epididymal cyst with no evidence of torsion. ASSESSMENT: 1. Sepsis without end-organ damage, resolved. 2. Health care associated pneumonia, likely atypical. 3. Bronchiectasis with acute exacerbation. 4. Chronic obstructive pulmonary disease with acute exacerbation. 5. Lymphoma, status post 2nd of 6 cycles. DISCUSSION AND PLAN: I will continue his antibiotics. I will give him a 5-day brief course of steroids. At this point, he is stable for transition out of the ICU to the medical unit. Pulmonary/Critical Care will follow along. The cefepime can be discontinued after a total duration of 7 days. If the blood cultures are negative on day 2, we can consider transitioning over to a p.o. medication. 70 minutes have been devoted to this patient in various activities. I personally reviewed all imaging studies and laboratory data noted within this document. For fifty percent of this time, I was interacting with the patient at the bedside or coordinating care with the care team. For the remainder of the time I was immediately available to the patient in the hospital unit. Job ID: [id number] [facility]
[2019-02-11] MEDS ORDERED: Atorvastatin Calcium 10 MG TAB PO SCH (21:00)
[2019-02-11] MEDS ORDERED: Non-Formulary Item 1 EACH (Lovastatin [Altoprev] 40 MG) PO SCH (21:00)
[2019-02-12] MEDS: Acetaminophen 325 MG TAB PO PRN (06:08)
[2019-02-12] MEDS ORDERED: predniSONE 20 MG TAB PO SCH (08:00)
[2019-02-12] MEDS: Tamsulosin HCl 0.4 MG CAP PO SCH (08:39)
[2019-02-12] MEDS: Citrucel 500 MG TAB PO SCH (08:39)
[2019-02-12] MEDS: Lisinopril 10 MG TAB PO SCH (08:40)
[2019-02-12] MEDS: Allopurinol 100 MG TAB PO SCH (08:40)
[2019-02-12] MEDS: Cefepime 1 GM in Sodium Chloride 0.9% 100 ML IVPB SCH (08:41)
[2019-02-12] MEDS: Polyethylene Glycol 3350 17 GM Packet PO SCH (08:41)
[2019-02-12] MEDS ORDERED: Bisacodyl 5 MG TAB PO SCH (09:00)
--- NOTE | 2019-02-12 09:37 | PRG ---
DATE OF SERVICE: 02/12/2019 SERVICE: Pulmonary Medicine. INTERVAL HISTORY: The patient must be doing just fine this morning. I walked in the room to introduce myself. He is on the phone having a fairly drawn-out conversation with a friend or family member. He proceeded to continue having a conversation. As such, I observed him for no less than about 2 to 3 minutes. He showed no signs of hanging up. He did not have any conversational dyspnea or accessory muscle use. There were no reported events overnight. I briefly listened to him, and respectfully let him have his conversation on the phone. PHYSICAL EXAMINATION: VITAL SIGNS: Afebrile, pulse 92, blood pressure 132/61, respirations 16, saturation 96% on room air. GENERAL: The patient is awake and alert, in no apparent distress. LUNGS: Very good air entry. No prolonged expiratory phase or wheezing is present. HEART: Normal rate and regular. ABDOMEN: Soft, nontender, nondistended. Bowel sounds are positive. MUSCULOSKELETAL: No cyanosis or clubbing. No pitting in the bilateral lower extremities. NEUROLOGIC: Grossly nonfocal. LABORATORY DATA: Blood cultures x2 and urine culture unremarkable. ASSESSMENT: 1. Sepsis without end-organ damage, resolved. 2. Pneumonia, likely atypical. 3. Bronchiectasis with acute exacerbation. 4. Chronic obstructive pulmonary disease with acute exacerbation. 5. Lymphoma, status post 2 of 6 cycles. DISCUSSION AND PLAN: The patient is doing fine from Respiratory standpoint. At this point, he is stable for transition out of the hospital. We can convert over to p.o. medications and treat for a total duration of 7 days. Steroids can be discontinued after a total duration of 5 days. At this point, he has no further requirements for inpatient Pulmonary or Critical Care opinion, and I will sign off. Please call with additional questions or concerns or if the patient's condition deteriorates through time. Job ID: [id number] [facility]
[2019-02-12] MEDS ORDERED: Fleet Enema 133 ML BOT FS SCH (12:00)
--- NOTE | 2019-02-12 15:14 | PQF ---
CLINICAL DOCUMENTATION IMPROVEMENT CLARIFICATION FORM: ICD-10 Updated PLEASE DO AN ADDENDUM TO THE PROGRESS NOTE WITH ANY DOCUMENTATION UPDATES OR ADDITIONS AND CARRY THROUGH TO DC SUMMARY. THANK YOU. DATE: 02/12/19 ATTN: DR. ROWLAND Please exercise your independent, professional judgment in responding to the clarification form. Clinical indicators are provided on the bottom of this form for your review Please check appropriate box(s): [ ] Acute Respiratory Failure: [ ] with Hypoxia[ ] with Hypercapnia [ ] Acute On Chronic Respiratory Failure: [ ] with Hypoxia [ ] with Hypercapnia [ x ] Acute Respiratory Failure due to: (etiology) ____pneumonia __ [ ] ARDS (Acute Respiratory Distress Syndrome) [ ] Chronic Respiratory Failure only [ ] with Hypoxia [ ] with Hypercapnia [ ] Hypoxia [ ] Other diagnosis [ ] Unable to determine In addition, please specify: Present on Admission (POA): [ x ] Yes [ ] No [ ] Unable to determine For continuity of documentation, please document condition throughout progress notes and discharge summary. Thank You. CLINICAL INDICATORS - SIGNS / SYMPTOMS / LABS ER NOTE: "...EVALUATED BY DR. FLYNN WHO NOTICED PT WAS HYPOTENSIVE WITH LOW O2 SATS" "DIMINISHED BREATH SOUNDS BILATERALLY WITH CRACKLES" RR 37 RISKS: PNEUMONIA TREATMENT: BIPAP DUONEBS (ER-PRESENT) IV ROCEPHIN (ER) IV MAXIPIME (02/10-PRESENT) IV VANCOMYCIN (02/10-02/11) PREDNISONE (02/11-PRESENT) IMCU MONITORING (This form is maintained as a part of the permanent medical record) 2014 [employer]. All Rights Reserved [facility]
[2019-02-12 17:43] VITALS: BP 123/65; TEMP 97.5
--- NOTE | 2019-02-13 04:22 | DIS ---
DATE OF ADMISSION: 02/10/2019 DATE OF DISCHARGE: 02/12/2019 FINAL DIAGNOSES: 1. Sepsis without end-organ damage, resolved. 2. Atypical pneumonia. 3. Acute exacerbation of bronchiectasis. 4. Chronic obstructive pulmonary disease with acute exacerbation. 5. Lymphoma. CONSULTANTS: 1. Dr. Brayan Rinaldi, Pulmonary/Critical Care. 2. Dr. Araya, Oncology Service. HOSPITAL COURSE: The patient is a 78-year-old male with stage III diffuse large B-cell lymphoma. He received two cycles of CVP-R and he went to the Oncology Clinic. He was found to be weak. He had difficulty urinating and he had testicular pain. His heart rate was elevated. He received IV fluids and was sent for followup, but he presented to the emergency room evening with shortness of breath. He was placed on BiPAP and had a CT angiogram of the chest which was negative for PE, but showed possible pneumonia. The patient was admitted to the hospital. At the time of emergency room visit, his white count was 9.6, hemoglobin 9.5, platelet count 241,000, neutrophils 87, bands 39. ABGs showed pH of 7.63 and pCO2 of 18.5, PO2 of 97.3. Normal electrolytes. BUN 26, creatinine 0.8, and GFR was greater than 90. Glucose 102. Lactic acid 1.2. LFTs were negative. Albumin 3.2. Urine was negative for infection. His EKG showed atrial fibrillation with RVR at the rate of 106 on presentation and testicular ultrasound showed no testicular torsion. It showed right epididymal cyst. There was no evidence of testicular torsion. The patient was treated with IV antibiotics. He had CT angiogram of the chest done, which showed no PE but waxing and waning areas of peripheral tree in bud nodularity suspicious for peripheral bronchiolitis and stable emphysema. He was retaining urine, so the catheter was placed in his urinary bladder. He was seen by Dr. Rinaldi, who recommends to use steroids and IV antibiotics, then switch to p.o. antibiotics. Today, he is doing well. Also, he was seen by Dr. Araya's PA, Kitty Paez, who recommended to follow up with Oncology Clinic after discharge from the hospital. He is doing very well. Today, his blood pressure is 132/61, pulse is 92, temperature is 97.3, respiratory rate is 16, O2 saturation is 96% on room air. He is discharged home in good condition with recommendation to stay on heart healthy diet. FOLLOWUP: He will follow up with Dr. Almonte, who is his primary care physician. He will follow up with Oncology Clinic, he already has an appointment and to followup. He will need to have Urology appointment since he has a history of prostate cancer in the past and now, he is retaining urine. MEDICATIONS: At the time of discharge: 1. Flomax 0.4 mg once a day. 2. Omeprazole 20 mg once a day. 3. Lisinopril 10 mg once a day. 4. Allopurinol 100 mg once a day. 5. MiraLAX 17 g twice a day. 6. Metoprolol succinate 50 mg daily. 7. Lovastatin 40 mg at bedtime. 8. Citrucel 500 mg daily. 9. Prednisone 40 mg q.a.m. 10. Levofloxacin 500 mg once a day for the next 7 days. 11. Albuterol 2 puffs q.4 hours p.r.n. as needed. DISPOSITION: He will be discharged home. TIME SPENT: Discharge time is less than 30 minutes. Job ID: [id number]
--- NOTE | 2019-02-13 14:43 | EKG ---
Test Reason : SOB Blood Pressure : / mmHG Vent. Rate : 106 BPM Atrial Rate : 115 BPM P-R Int : 000 ms QRS Dur : 076 ms QT Int : 298 ms P-R-T Axes : 000 014 -13 degrees QTc Int : 395 ms Atrial fibrillation with rapid ventricular response Cannot rule out Inferior infarct , age undetermined Abnormal ECG Confirmed by LAURI Davis, MARIA DOLORES ([id number]), video effects editor AUSTEN BRITT ([id number]) on 02/13/2019 2:42:53 PM Referred By: Confirmed By:MARIA DOLORES CARREON M.D.
== END 2019-02-12 16:26 | disposition home health service (06) | DRG 871 ==
LOC: ERS 16:59 → IMCU/EMU 21:39 → T4-B 02-11 20:04
PROVIDERS: ADMIT Hospitalist; ATTEND Hospitalist
DX: A41.9 Sepsis, unspecified organism (principal); J18.9 Pneumonia, unspecified organism; J96.00 Acute respiratory failure, unspecified whether with hypoxia or hypercapnia; J47.0 Bronchiectasis with acute lower respiratory infection; C85.90 Non-Hodgkin lymphoma, unspecified, unspecified site; I42.9 Cardiomyopathy, unspecified; E87.3 Alkalosis; E11.9 Type 2 diabetes mellitus without complications; I10 Essential (primary) hypertension; K21.9 Gastro-esophageal reflux disease without esophagitis; K59.00 Constipation, unspecified; D64.9 Anemia, unspecified; R33.9 Retention of urine, unspecified; I25.10 Atherosclerotic heart disease of native coronary artery without angina pectoris
CPT/HCPCS: 36415; 36416; 71045; 71275; 76870; 80048; 80053; 81001; 81015; 82248; 82805; 83605; 83615; 83880; 84100; 84443; 84484; 84550; 85025; 86850; 86900; 86901; 87040; 87086; 90471; 90670; 93005; 93976; 94640; 94660; G0009; J0692; J0696; J1642; J2405; J3010; J3370; J3490; J7512; J7620; Q9966

== ENCOUNTER 2019-02-20 15:55 | Emergency (ER) | payer MEDICARE ==
[2019-02-20 16:53] LABS: #Basophils 0.1 thou/uL (0.0-0.2); #Eosinphils 0.1 thou/uL (0.0-0.7); #Lymphocytes 1.3 thou/uL (1.20-3.40); #Monocytes 0.8 thou/uL (0.11-0.59); #Neutrophils 7.2 thou/uL (1.40-6.50); %Basophils 0.7 % (0.0-1.0); %Eosinophils 0.6 % (0.0-10.0); %Lymphocytes 13.7 % (21.0-51.0); %Monocytes 8.5 % (0.0-10.0); %Neutrophils 76.6 % (42.0-75.0); Mean Corpuscular Hemoglobin 28.7 pg (27.0-31.0); Mean Platelet Volume 6.1 fL (7.4-10.4); Platelet Count 318 thou/uL (130-400); RBC Distribution Width 15.3 % (11.5-14.5); White Blood Cell (WBC) Count 9.5 thou/uL (4.8-10.8)
[2019-02-20 17:13] LABS: ALT (SGPT) 15 U/L (8-55); AST (SGOT) 23 U/L (5-34); Albumin 3.4 g/dL (3.4-4.8); Alkaline Phosphatase 74 U/L (40-150); Anion Gap 13 mmol/L (10-20); BUN (Urea Nitrogen) 15 mg/dL (8.4-25.7); Bilirubin, Total 0.6 mg/dL (0.2-1.2); Calc. Creatinine Clearance 0 mL/min (70-130); Calcium 9.1 mg/dL (7.8-10.44); Carbon Dioxide 23 mmol/L (23-31); Chloride 101 mmol/L (98-107); Estimated GFR-MDRD Greater than 90; Globulin 2.6 g/dL (2.4-3.5); Glucose 89 mg/dL (83-110); Potassium 3.5 mmol/L (3.5-5.1); Sodium 133 mmol/L (136-145)
[2019-02-20 17:30] LABS: Bilirubin Negative (Negative); Blood, Urine 2+ (Negative); Clarity Clear (Clear); Glucose, Urine (Dipstick) Normal (Negative); Leukocyte Negative Leu/uL (Negative); Nitrite Negative (Negative); Protein, Urine (Dipstick) 20 mg/dL (Neg-Trace); RBC/HPF 21-50 HPF (0-3); Squamous Epithelial None Seen HPF (0-3); Urobilinogen Normal mg/dL (Less than 2)
[2019-02-20 17:37] LABS: Bacteria/HPF 2+ HPF (None Seen); Yeast-Budding 1+ HPF (None Seen)
== END 2019-02-20 18:15 | disposition home or self-care (01) ==
LOC: ERS 15:55
DX: Z46.6 Encounter for fitting and adjustment of urinary device (principal); R33.9 Retention of urine, unspecified; I25.2 Old myocardial infarction; E11.9 Type 2 diabetes mellitus without complications; E78.5 Hyperlipidemia, unspecified; I10 Essential (primary) hypertension; Z79.899 Other long term (current) drug therapy
CPT/HCPCS: 36415; 80053; 81003; 81015; 85025; 87086

== ENCOUNTER 2019-02-21 16:27 | Inpatient (IN) | payer MEDICARE ==
[2019-02-21] MEDS ORDERED: cefTRIAXone\\ROCEPHIN 2 GM VIAL ONE (17:30)
[2019-02-21 17:39] LABS: #Basophils 0.1 thou/uL (0.0-0.2); #Eosinphils 0.1 thou/uL (0.0-0.7); #Lymphocytes 1.5 thou/uL (1.20-3.40); #Monocytes 0.9 thou/uL (0.11-0.59); #Neutrophils 12.5 thou/uL (1.40-6.50); %Basophils 0.5 % (0.0-1.0); %Eosinophils 0.6 % (0.0-10.0); %Lymphocytes 9.8 % (21.0-51.0); %Monocytes 6.1 % (0.0-10.0); %Neutrophils 82.9 % (42.0-75.0); Mean Corpuscular HGB CONC 32.9 g/dL (32.0-36.0); Mean Corpuscular Hemoglobin 28.9 pg (27.0-31.0); Mean Corpuscular Volume 87.7 fL (78.0-98.0); Mean Platelet Volume 6.7 fL (7.4-10.4); Platelet Count 325 thou/uL (130-400); RBC Distribution Width 15.3 % (11.5-14.5); Red Blood Cell (RBC) Count 3.45 mill/uL (4.70-6.10); White Blood Cell (WBC) Count 15.1 thou/uL (4.8-10.8)
[2019-02-21 17:53] LABS: Bilirubin Small (Negative); Blood, Urine Large (Negative); Glucose, Urine (Dipstick) Negative (Negative); Leukocyte Negative (Negative); Nitrite Negative (Negative); Protein, Urine (Dipstick) 30 mg/dL (Neg-Trace); Urobilinogen 0.2 mg/dL (Less than 2)
[2019-02-21 17:55] LABS: Clarity Clear (Clear)
[2019-02-21 17:55] LABS: ALT (SGPT) 13 U/L (8-55); AST (SGOT) 22 U/L (5-34); Albumin 3.3 g/dL (3.4-4.8); Alkaline Phosphatase 73 U/L (40-150); Anion Gap 15 mmol/L (10-20); BUN (Urea Nitrogen) 16 mg/dL (8.4-25.7); Bilirubin, Total 0.4 mg/dL (0.2-1.2); Calc. Creatinine Clearance 0 mL/min (70-130); Calcium 9.3 mg/dL (7.8-10.44); Carbon Dioxide 22 mmol/L (23-31); Chloride 100 mmol/L (98-107); Estimated GFR-MDRD 74; Globulin 2.7 g/dL (2.4-3.5); Glucose 153 mg/dL (83-110); Lipase 26 U/L (8-78); Potassium 3.4 mmol/L (3.5-5.1); Sodium 134 mmol/L (136-145)
[2019-02-21 18:02] LABS: Bacteria/HPF 1+ HPF (None Seen); RBC/HPF 0-3 HPF (0-3); Squamous Epithelial 0-3 HPF (0-3); WBC/HPF 0-3 HPF (0-3)
[2019-02-21 18:03] LABS: Yeast-Budding 1+ HPF (None Seen)
--- NOTE | 2019-02-21 18:06 | RAD ---
PORTABLE CHEST ONE VIEW: Date: 02-21-19 Time: 5:26 p.m. History: Nausea, chills, abdominal pain. FINDINGS: Comparison is made with exam of 02-10-19. The heart size is normal. Right sided noah-catheter remains in place. The lungs are well expanded wi th chronic changes. No lobar consolidation, pneumothoraces or pleural effusions are seen. IMPRESSION: No acute process. POS: [facility]
[2019-02-21] MEDS ORDERED: Ketorolac Tromethamine 30 MG/ML VIAL ONE (18:16)
--- NOTE | 2019-02-21 18:39 | CT ---
ABDOMEN AND PELVIC CT SCAN WITH IV CONTRAST: History: Comparison: 01-14-19 FINDINGS: Minimal chronic linear changes in the lung bases. Small amount of free intraperitoneal fluid. Small l ymph nodes in the right cardiophrenic region, slightly smaller than on prior study. There is again no evelia to be a large infiltrating mesenteric mass in the central abdomen infiltrating bowel loops, the o verall size of which approximates 5.7 x 10.2 x 11.1 cm, which is decreased in size from the prior naldo dy. Adenopathy noted at the aortic bifurcation measuring 2 cm x 1.5 cm, increased in size from the pr ior study. Low lying left pelvic kidney. Pascal catheter in place within the bladder. Post op radiatio n implant seeds in the prostate gland. The liver, pancreas, spleen, and adrenal glands are unremarkab le. The gallbladder is somewhat borderline in size but no pericholecystic edema or pericholecystic fl uid. No renal hydronephrosis. IMPRESSION: Poorly circumscribed mesenteric mass which incases multiple bowel loops showing a decrease in size fr om the prior study. Lymphadenopathy in the left retroperitoneal at the level of the aortic bifurcatio n showing an increase in size. Several small lymph nodes in the right cardiophrenic region showing a minimal decrease in size. Minimal acidic fluid. No overt large or small bowel obstruction. Other global ceo ketty stable findings. POS: RRE
[2019-02-21] MEDS ORDERED: Piperacillin/Tazobactam 4.5 GM VIAL ONE (20:23)
[2019-02-21] MEDS ORDERED: Fentanyl 100 MCG/2 ML VIAL ONE (20:34)
--- NOTE | 2019-02-21 20:49 | HP ---
REASON FOR ADMISSION: Sepsis, hypotension. HISTORY OF PRESENT ILLNESS: A 78-year-old male, who has underlying history of lymphoma, on chemotherapy. Last chemotherapy was about 2 weeks ago and next chemotherapy is planned on next Friday. He had yesterday emergency room visit for urinary retention and his Pascal catheter was not draining and that is why Pascal catheter was replaced. He went home and again his Pascal catheter came out and he was experiencing nausea, chills, subjective fever and lower abdominal pain and that is why patient came back to the ER because he was not able to urinate by himself. When he came into the emergency room today, his blood pressure was 69/39. The patient did not to take his blood pressure medication. He was tachypneic. He was given IV fluid and after that, his blood pressure improved. His lactic acid was also elevated. In the emergency room abdomen and pelvis CT scan showed poorly circumscribed mesenteric mass, lymphadenopathy in the retroperitoneal area without any bowel obstruction. His chest x-ray was unremarkable. The patient denies any headache, neck pain, sore throat, runny nose, nasal congestion, ear pain, chest pain, cough, pleurisy, constipation, diarrhea. His only complaint is urinary retention and he was having difficulty voiding, required 2 times Pascal catheter replacement in the emergency room. When I saw at that time, his blood pressure has been improved after IV fluid. He is afebrile. The patient will require admission for possible sepsis and use of urinary tract infection. REVIEW OF SYSTEMS: CONSTITUTIONAL: Negative for weight loss or gain, ability to conduct usual activities. SKIN: Negative for rash, itching. EYES: Negative for double vision, pain. ENT/MOUTH: Negative for nose bleeding, neck stiffness, pain, tenderness. CARDIOVASCULAR: Negative for palpitations, dyspnea on exertion, orthopnea. RESPIRATORY: Negative for shortness of breath, wheezing, cough, hemoptysis, fever or night sweats. GASTROINTESTINAL: Negative for poor appetite, abdominal pain, heartburn, nausea, vomiting, constipation, or diarrhea. GENITOURINARY: Negative for urgency, frequency, dysuria, nocturia. MUSCULOSKELETAL: Negative for pain, swelling. NEUROLOGIC/PSYCHIATRIC: Negative for anxiety, depression. ALLERGY/IMMUNOLOGIC: Negative for skin rash, bleeding tendency. Please see my HPI for pertinent positives and negatives. All other review of systems reviewed and negative except as mentioned in HPI. PAST MEDICAL HISTORY: Coronary artery disease with history of [place] in 1998, diabetes type 2, hypertension, dyslipidemia, metastatic lymphoma treated with chemotherapy, history of prostate cancer treated with radiation. PAST SURGICAL HISTORY: Surgical attempt to remove tumor. PAST PSYCHIATRIC HISTORY: Reviewed and negative. SOCIAL HISTORY: The patient lives at home with family. No history of tobacco, alcohol, or illicit drug abuse. FAMILY HISTORY: No strong family history of premature coronary artery disease, stroke, or cancer. ALLERGIES: TRAMADOL. CURRENT HOME MEDICATIONS: 1. Lisinopril 10 mg p.o. daily. 2. Lovastatin 40 mg daily. 3. Allopurinol 100 mg daily. 4. Toprol-XL 50 mg p.o. daily. 5. Omeprazole 20 mg daily. 6. Flomax 0.4 mg daily. 7. Tylenol No. 3 p.r.n. basis. EMERGENCY ROOM COURSE: The patient has received IV fluid, vancomycin, Zosyn, Toradol. PHYSICAL EXAMINATION: VITAL SIGNS: Currently, blood pressure 109/73, pulse 100, respiratory rate 22, temperature 97.9, saturation 95% on 2 L oxygen. Weight 58.9 kg. Initial blood pressure lowest was 64/39, that has been improved. GENERAL: The patient is currently alert, awake, no obvious acute distress. HEENT: Head normocephalic, atraumatic. Eyes, pupils round, reactive to light. Extraocular muscle intact. ENT, dry mucous membranes. No oral lesion. No pharyngeal erythema. No exudate. NECK: Supple. No JVD. No thyromegaly. No carotid bruit. No jugular venous distention. LUNGS: Clear to auscultation without any rhonchi or rales. Slight tachypnea. CARDIAC: S1, S2. Regular. Slight tachycardia. No murmur. No gallop. No rub. ABDOMEN: The patient does have lower abdominal discomfort in suprapubic region. No peritoneal sign. No guarding. No rigidity. No rebound. BACK: Back discomfort noted. No CVA tenderness. EXTREMITIES: Upper extremities, passive movement of all joints are normal. Lower extremity, no edema. Good distal pulsation. SKIN: No skin rash other than pallor present. NEUROLOGIC: Nonfocal examination. Speech normal. PSYCHIATRIC: Normal affect. SIGNIFICANT LABORATORY DATA: CT abdomen and pelvis showing mesenteric mass without any obstruction. Chest x-ray, no acute cardiopulmonary process. CBC: WBC 15.1, hemoglobin 10.0, platelet 325. BMP: Sodium 134, potassium 3.4, chloride 100, carbon dioxide 22, BUN 16, creatinine 0.98, glucose 153, calcium 9.3, lactic acid 2.4. LFT: AST 22, ALT 13, alkaline phosphatase 73, albumin 3.3, lipase 26. Troponin I is less than 0.010. Urinalysis unremarkable. Microscopic hematuria. Yeast 1+. ASSESSMENT AND PLAN: 1. Sepsis. 2. Sepsis associated hypotension. 3. Lactic acidosis. 4. Urinary tract infection. 5. Normocytic normochromic anemia. 6. Mild hyponatremia and hypokalemia. 7. Underlying lymphoma, on chemotherapy. 8. Chronic urinary retention due to benign enlargement of prostate. 9. History of hypertension. 10. Dyslipidemia. 11. Gastroesophageal reflux disease. PLAN: The patient will require admission for his sepsis. We will start broad-spectrum antibiotic therapy with vancomycin and Zosyn. I am suspecting that the patient required recurrent indwelling Pascal catheterization and transient bacteremia induced hypotension and associated sepsis as likely scenario. We will follow up on blood and urine culture result. The patient is due for next chemotherapy on Friday and that is why we will consult Oncology on that day. We will continue with IV fluid with potassium supplementation and we will repeat labs tomorrow. We will repeat lactic acid tomorrow. We will hold on antihypertensive medication because of relatively low blood pressure. We will resume allopurinol, Flomax, Protonix while in the hospital. Deep venous thrombosis prophylaxis. Lovenox 40 mg subcu daily. Gastrointestinal prophylaxis, Protonix 40 mg p.o. daily. CODE STATUS: The patient is full code, that was confirmed with the patient and family member. DISPOSITION AND PLAN: Based on clinical course, we are expecting the patient's stay in hospital more than 2 midnights. Plan of care discussed with the patient and family member at bedside. Job ID: [id number]
[2019-02-21] MEDS ORDERED: Sodium Chloride 0.65% Nasal 44 ML BOT EA NARE PRN (22:52)
[2019-02-21] MEDS ORDERED: Ondansetron PF 4 MG/2 ML Vial IVP PRN (22:52)
[2019-02-21] MEDS ORDERED: Loratadine 10 MG TAB PO PRN (22:52)
[2019-02-21] MEDS ORDERED: Senokot S 8.6-50 MG TAB PO PRN (22:52)
[2019-02-21] MEDS ORDERED: hydrALAZINE 20 MG/ML VIAL SLOW IVP PRN (22:52)
[2019-02-21] MEDS ORDERED: Calcium Carbonate 500 MG ChewTAB PO PRN (22:52)
[2019-02-21] MEDS ORDERED: Zolpidem Tartrate 5 MG TAB PO PRN (22:52)
[2019-02-21] MEDS ORDERED: Guaifenesin DM 100-10/5 ML UDCUP PO PRN (22:52)
[2019-02-21] MEDS ORDERED: Ondansetron ODT 4 MG TAB PO PRN (22:52)
[2019-02-21] MEDS ORDERED: Loperamide HCl 2 MG CAP PO PRN (22:52)
[2019-02-21] MEDS ORDERED: Bisacodyl 10 MG SUPP PR PRN (22:52)
[2019-02-21] MEDS ORDERED: Diabetic Tussin 200 MG/10 ML UDCUP PO PRN (22:52)
[2019-02-21] MEDS ORDERED: Famotidine 20 MG TAB PO SCH (23:00)
[2019-02-21] MEDS: 1/2 NS w/KCL 20 mEq 1,000 ML IV SCH (23:28)
[2019-02-21] MEDS: Acetaminophen 325 MG TAB PO PRN (23:28)
[2019-02-21 23:45] VITALS: BMI 20.8
[2019-02-22] MEDS: Piperacillin/Tazobactam 3.375 GM in Sodium Chloride 0.9% 100 ML IVPB SCH ×4 (02:06→19:35)
[2019-02-22] MEDS: Vancomycin HCl 500 MG in Sodium Chloride 0.9% 100 ML IVPB SCH ×2 (05:38→18:32)
[2019-02-22 06:05] LABS: #Eosinphils 0.1 thou/uL (0.0-0.7); #Lymphocytes 0.6 thou/uL (1.20-3.40); #Monocytes 0.3 thou/uL (0.11-0.59); %Basophils 0.5 % (0.0-1.0); %Eosinophils 0.9 % (0.0-10.0); %Lymphocytes 6.9 % (21.0-51.0); %Monocytes 3.4 % (0.0-10.0); %Neutrophils 88.4 % (42.0-75.0); Hemoglobin 11.5 g/dL (14.0-18.0); Mean Corpuscular HGB CONC 32.4 g/dL (32.0-36.0); Mean Corpuscular Hemoglobin 28.3 pg (27.0-31.0); Mean Corpuscular Volume 87.2 fL (78.0-98.0); Mean Platelet Volume 6.2 fL (7.4-10.4); Platelet Count 182 thou/uL (130-400); RBC Distribution Width 15.5 % (11.5-14.5); Red Blood Cell (RBC) Count 4.05 mill/uL (4.70-6.10); White Blood Cell (WBC) Count 7.9 thou/uL (4.8-10.8)
[2019-02-22 06:26] LABS: ALT (SGPT) 13 U/L (8-55); AST (SGOT) 23 U/L (5-34); Albumin 2.7 g/dL (3.4-4.8); Alkaline Phosphatase 61 U/L (40-150); Anion Gap 10 mmol/L (10-20); BUN (Urea Nitrogen) 15 mg/dL (8.4-25.7); Bilirubin, Total 0.3 mg/dL (0.2-1.2); Calc. Creatinine Clearance 67 mL/min (70-130); Calcium 8.1 mg/dL (7.8-10.44); Carbon Dioxide 23 mmol/L (23-31); Chloride 105 mmol/L (98-107); Estimated GFR-MDRD Greater than 90; Glucose 109 mg/dL (83-110); Magnesium 1.6 mg/dL (1.6-2.6); Potassium 3.8 mmol/L (3.5-5.1); Protein, Total 4.7 g/dL (5.8-8.1); Sodium 134 mmol/L (136-145)
--- NOTE | 2019-02-22 08:23 | PDOC.HOSPP ---
- Subjective Encounter Date: 02/22/19 Encounter Time: 08:21 Subjective: 78 y/o male with lymphoma on treatment as well as chronic urinary retention 2/2 BPH requiring chronic indwelling catheter admitted with abdominal pain associated with fever and chills. Found to be hypotensive on presentation whicvh improved with IVF. Feeling Better. nursing staff reported hypoxia with Spo2 in low 80's which improved greatly to 97 with 2lpm o2 supplementation. - Objective Vital Signs & Weight: Vital Signs (12 hours) Temp Pulse Resp BP Pulse Ox 02/22/19 07:39 98.0 F 113 H 18 103/50 L 97 02/22/19 05:51 98.3 F 96 18 100/55 L 90 L 02/21/19 22:52 95 02/21/19 22:45 98 F 106 H 20 115/56 L 95 Weight Weight 137 lb 2 oz I&O: 02/21/19 02/22/19 02/23/19 06:59 06:59 06:59 Intake Total 1275 Output Total 350 Balance 925 Result Diagrams: 02/22/19 05:48 02/22/19 05:48 Hospitalist ROS - Medication Medications: Active Medications Generic Name Dose Route Start Last Admin Trade Name Freq PRN Reason Stop Dose Admin Acetaminophen 650 mg 02/21/19 22:52 02/21/19 23:28 Tylenol PO 650 mg Q4H PRN Administration Headache/Fever/Mild Pain (1-3) Piperacillin Sod/Tazobactam 100 mls @ 200 mls/hr 02/22/19 03:00 02/22/19 02: 06 Sod 3.375 gm/ Sodium Chloride IVPB 100 mls 0300,0900,1500,2100 JOVANI Administration Vancomycin HCl 500 mg/ Sodium 100 mls @ 100 mls/hr 02/22/19 06:00 02/22/19 05 :38 Chloride IVPB 100 mls 0600,1800 JOVANI Administration - Exam General Appearance: awake alert Eye: anicteric sclera ENT: normocephalic atraumatic, moist mucosa Neck: supple, symmetric, no JVD Heart: RRR, no murmur Respiratory: no wheezes, no rales, no ronchi, normal chest expansion, no tachypnea Respiratory - other findings: fair air entry with some transmitted sound Gastrointestinal: soft, non-distended, normal bowel sounds Extremities: no cyanosis, no edema Neurological: CN's grossly intact, no focal deficits Psychiatric: normal affect, A&O x 3 Hosp A/P (1) Severe sepsis Code(s): A41.9 - SEPSIS, UNSPECIFIED ORGANISM; R65.20 - SEVERE SEPSIS WITHOUT SEPTIC SHOCK Status: Acute (2) Catheter-associated urinary tract infection Code(s): T83.511A - I/I REACT D/T INDWELLING URETHRAL CATHETER, INIT; N39.0 - URINARY TRACT INFECTION, SITE NOT SPECIFIED Status: Acute (3) Urinary retention due to benign prostatic hyperplasia Code(s): N40.1 - BENIGN PROSTATIC HYPERPLASIA WITH LOWER URINARY TRACT SYMP; R33.8 - OTHER RETENTION OF URINE Status: Acute (4) Chronic indwelling Pascal catheter Code(s): Z96.0 - PRESENCE OF UROGENITAL IMPLANTS Status: Acute (5) Abdominal pain Code(s): R10.9 - UNSPECIFIED ABDOMINAL PAIN Status: Acute (6) Abdominal mass Code(s): R19.00 - INTRA-ABD AND PELVIC SWELLING, MASS AND LUMP, UNSP SITE Status: Acute (7) Hypokalemia Code(s): E87.6 - HYPOKALEMIA Status: Acute (8) Hypotension Status: Acute (9) Constipation Code(s): K59.00 - CONSTIPATION, UNSPECIFIED Status: Acute (10) Large B-cell lymphoma Code(s): C85.10 - UNSPECIFIED B-CELL LYMPHOMA, UNSPECIFIED SITE Status: Acute - Plan Continue IVF and antibiotics. await cultures. Continue oxygen supplementation. Start IS and get D dimer. Get CTA chest if D dimer is elevated. Replete serum potassium. get mag level. Follow electrolytes.
[2019-02-22] MEDS ORDERED: Magnesium 2 GM/50 ML 2 GM in Premix Bag 1 BAG IVPB SCH (08:30)
[2019-02-22] MEDS: Famotidine 20 MG TAB PO SCH ×2 (08:55→19:35)
[2019-02-22] MEDS: Tamsulosin HCl 0.4 MG CAP PO SCH (08:55)
[2019-02-22] MEDS: Polyethylene Glycol 3350 17 GM Packet PO SCH ×2 (09:00→19:36)
--- NOTE | 2019-02-22 09:50 | CT ---
EXAM: CT angiogram of the chest including 3-D rendering: HISTORY: Hypoxia, positive d-dimer COMPARISON: 02/10/2019 FINDINGS: There is adequate opacification of the pulmonary arteries. No evidence for aortic aneurysm or dissection. No convincing CT evidence for acute pulmonary embolism. There are fairly extensive bilateral small bullous changes and extensive interstitial lung disease as well as extensive bilateral honeycombing with some bilateral pleural thickening evidence for chronic interstitial lung disease. No evidence for acute confluent process. No evidence for mediastinal mass or adenopathy. No evidence for pleural or pericardial effusion. The visualized upper abdomen is unremarkable. IMPRESSION: No convincing CT evidence for acute pulmonary embolism. Extensive chronic changes.
[2019-02-22] MEDS: Lactated Ringer's 1,000 ML IV SCH (10:43)
[2019-02-22] MEDS ORDERED: ISOVUE-370 76%-LOCM 1 ML ONE (13:10)
[2019-02-22] MEDS: 1/2 NS w/KCL 20 mEq 1,000 ML IV SCH (18:32)
[2019-02-22] MEDS: Acetaminophen 325 MG TAB PO PRN (19:36)
[2019-02-22] MEDS: Acetaminophen/Codeine 30-300mg Tablet PO PRN (20:26)
[2019-02-23] MEDS: Piperacillin/Tazobactam 3.375 GM in Sodium Chloride 0.9% 100 ML IVPB SCH (03:06)
[2019-02-23] MEDS: Lactated Ringer's 1,000 ML IV SCH (03:07)
[2019-02-23 05:19] LABS: #Eosinphils 0.1 thou/uL (0.0-0.7); #Lymphocytes 0.9 thou/uL (1.20-3.40); #Monocytes 0.7 thou/uL (0.11-0.59); #Neutrophils 8.7 thou/uL (1.40-6.50); %Basophils 0.5 % (0.0-1.0); %Eosinophils 1.1 % (0.0-10.0); %Lymphocytes 8.2 % (21.0-51.0); %Monocytes 6.9 % (0.0-10.0); %Neutrophils 83.3 % (42.0-75.0); Hemoglobin 8.9 g/dL (14.0-18.0); Mean Corpuscular HGB CONC 33.5 g/dL (32.0-36.0); Mean Corpuscular Hemoglobin 28.8 pg (27.0-31.0); Mean Corpuscular Volume 86.2 fL (78.0-98.0); Mean Platelet Volume 6.3 fL (7.4-10.4); Platelet Count 275 thou/uL (130-400); RBC Distribution Width 15.1 % (11.5-14.5); Red Blood Cell (RBC) Count 3.08 mill/uL (4.70-6.10); White Blood Cell (WBC) Count 10.4 thou/uL (4.8-10.8)
[2019-02-23 05:34] LABS: Vancomycin, Trough 6.8 ug/mL
[2019-02-23 05:38] LABS: Albumin 2.7 g/dL (3.4-4.8); Anion Gap 9 mmol/L (10-20); BUN (Urea Nitrogen) 12 mg/dL (8.4-25.7); BUN/Creatinine Ratio 15.79; Calc. Creatinine Clearance 69 mL/min (70-130); Carbon Dioxide 24 mmol/L (23-31); Chloride 106 mmol/L (98-107); Estimated GFR-MDRD Greater than 90; Glucose 108 mg/dL (83-110); Magnesium 1.8 mg/dL (1.6-2.6); Phosphorus 2.7 mg/dL (2.3-4.7); Potassium 3.8 mmol/L (3.5-5.1); Sodium 135 mmol/L (136-145)
[2019-02-23] MEDS ORDERED: Vancomycin HCl 1 GM in Premix Bag 1 BAG IVPB SCH (06:00)
--- NOTE | 2019-02-23 07:37 | PDOC.HOSPP ---
- Subjective Encounter Date: 02/23/19 Encounter Time: 07:36 Subjective: 78 y/o male with lymphoma on treatment as well as chronic urinary retention 2/2 BPH requiring chronic indwelling catheter admitted with abdominal pain associated with fever and chills. Found to be hypotensive on presentation whicvh improved with IVF. Feeling Better. Remained afebrile. - Objective Vital Signs & Weight: Weight Admit Weight 137 lb Weight 137 lb 2 oz I&O: 02/22/19 02/23/19 02/24/19 06:59 06:59 06:59 Intake Total 1275 Output Total 350 600 Balance 925 -600 Result Diagrams: 02/23/19 04:56 02/23/19 04:56 Hospitalist ROS - Medication Medications: Active Medications Generic Name Dose Route Start Last Admin Trade Name Freq PRN Reason Stop Dose Admin Acetaminophen 650 mg 02/21/19 22:52 02/22/19 19:36 Tylenol PO 650 mg Q4H PRN Administration Headache/Fever/Mild Pain (1-3) Acetaminophen/Codeine Phosphate 1 tab 02/22/19 19:51 02/22/19 20:26 Tylenol #3 PO 1 tab Q4H PRN Administration Moderate Pain (4-6) Famotidine 20 mg 02/22/19 09:00 02/22/19 19:35 Pepcid PO 20 mg BID JOVANI Administration Pantoprazole Sodium 40 mg 02/22/19 09:00 02/22/19 08:55 Protonix PO 40 mg DAILY JOVANI Administration Polyethylene Glycol 17 gm 02/22/19 09:00 02/22/19 19:36 Miralax PO Not Given BID JOVANI Tamsulosin HCl 0.4 mg 02/22/19 09:00 02/22/19 08:55 Flomax PO 0.4 mg DAILY JOVANI Administration - Exam General Appearance: awake alert Eye: anicteric sclera ENT: normocephalic atraumatic, moist mucosa Neck: supple, symmetric Heart: RRR Respiratory: no ronchi, normal chest expansion Respiratory - other findings: fair air entry bilaterally with scattered crackles /transmitted sound Gastrointestinal: soft, non-tender, non-distended, normal bowel sounds Extremities: no edema Neurological: CN's grossly intact, no focal deficits Psychiatric: normal affect, A&O x 3 Hosp A/P (1) Severe sepsis Code(s): A41.9 - SEPSIS, UNSPECIFIED ORGANISM; R65.20 - SEVERE SEPSIS WITHOUT SEPTIC SHOCK Status: Acute (2) Catheter-associated urinary tract infection Code(s): T83.511A - I/I REACT D/T INDWELLING URETHRAL CATHETER, INIT; N39.0 - URINARY TRACT INFECTION, SITE NOT SPECIFIED Status: Acute (3) Urinary retention due to benign prostatic hyperplasia Code(s): N40.1 - BENIGN PROSTATIC HYPERPLASIA WITH LOWER URINARY TRACT SYMP; R33.8 - OTHER RETENTION OF URINE Status: Acute (4) Chronic indwelling Pascal catheter Code(s): Z96.0 - PRESENCE OF UROGENITAL IMPLANTS Status: Acute (5) Abdominal pain Code(s): R10.9 - UNSPECIFIED ABDOMINAL PAIN Status: Acute (6) Abdominal mass Code(s): R19.00 - INTRA-ABD AND PELVIC SWELLING, MASS AND LUMP, UNSP SITE Status: Acute (7) Hypokalemia Code(s): E87.6 - HYPOKALEMIA Status: Acute (8) Hypotension Status: Acute (9) Constipation Code(s): K59.00 - CONSTIPATION, UNSPECIFIED Status: Acute (10) Large B-cell lymphoma Code(s): C85.10 - UNSPECIFIED B-CELL LYMPHOMA, UNSPECIFIED SITE Status: Acute (11) Suri cystitis Code(s): B37.41 - CANDIDAL CYSTITIS AND URETHRITIS Status: Acute (12) Hypoxia Code(s): R09.02 - HYPOXEMIA Status: Acute (13) COPD (chronic obstructive pulmonary disease) Status: Acute - Plan Discontinue IVF and IV antibiotics. Start Fluconazole and bactrim Await cultures. Start Duoneb and mucinex Continue oxygen supplementation and wean as tolerated. Follow electrolytes and replete as needed
[2019-02-23] MEDS: Tamsulosin HCl 0.4 MG CAP PO SCH (08:31)
[2019-02-23] MEDS: Fluconazole 100 MG TAB PO SCH (08:32)
[2019-02-23] MEDS: Famotidine 20 MG TAB PO SCH ×2 (08:32→19:53)
[2019-02-23] MEDS: Sulfameth/Trimethoprim DS 800-160mg TAB PO SCH ×2 (08:32→19:53)
[2019-02-23] MEDS: Polyethylene Glycol 3350 17 GM Packet PO SCH ×2 (08:33→19:53)
[2019-02-23] MEDS: PATIENT'S HOME MEDICATION TOP PRN (11:33)
[2019-02-23] MEDS: Acetaminophen/Codeine 30-300mg Tablet PO PRN (19:54)
--- NOTE | 2019-02-23 22:26 | CON ---
DATE OF CONSULTATION: REASON FOR CONSULT: Lymphoma. HISTORY OF PRESENT ILLNESS: Mr. 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 He has undergone 2 cycles of CVP-R. His last cycle was on February 02. He did receive Neulasta support. He has been struggling with urinary retention and presented to the emergency room with difficulty urinating. He had low blood pressure, chills and abdominal pain. He was admitted for hypertension and sepsis, started on empiric antibiotics. He underwent a CT of the chest and abdomen and pelvis, which showed improvement in his mesenteric mass. He underwent a chest and thorax CT angio, which was negative for pulmonary emboli. The patient is due for cycle 3 today. We were asked to see the patient regarding his treatment. PAST MEDICAL HISTORY: 1. Stage III diffuse large B-cell lymphoma. 2. Coronary artery disease with decreased EF. 3. Diabetes. 4. High blood pressure. 5. NC. 6. High cholesterol. 7. Acid reflux. PAST SURGICAL HISTORY: Lymph node biopsy. ALLERGIES: NO KNOWN DRUG ALLERGIES. HOME MEDICATIONS: 1. Vitamin C. 2. Zofran p.r.n. 3. Prilosec. 4. Metoprolol 50. 5. Megace. 6. Lovastatin. 7. Lisinopril. 8. Flomax. 9. B12. 10. Aspirin. 11. Allopurinol. FAMILY HISTORY: Noncontributory. SOCIAL HISTORY: He is , lives with his spouse. No alcohol, tobacco, or illicit drug use, 60 pack year history of smoking. REVIEW OF SYSTEMS: A 10-point review of systems is negative. PHYSICAL EXAMINATION: VITAL SIGNS: Temperature is 98.3, pulse is 105, respiratory rate 18, BP is 115/56. He is 91% on 2.5 L. GENERAL: This is a well-developed, well-nourished male, in no acute distress. HEENT: Normocephalic, atraumatic. Pupils are equal and reactive to light. NECK: Supple. CV: Regular rate and rhythm. LUNGS: Clear anterior. ABDOMEN: Nontender. Bowel sounds are positive. : He has a Pascal catheter in place with yellow urine. EXTREMITIES: No clubbing, cyanosis, or edema. SKIN: No rash. HEMATOLOGIC: No petechiae or purpura. NEUROLOGIC: Nonfocal. PSYCHIATRIC: Alert, oriented, and appropriate. PERTINENT LABORATORY DATA AND X-RAYS: Current WBCs are 10.4, hemoglobin 8.9, hematocrit 26.5, platelet count 275,000. He has 83% neutrophils, 8% lymphocytes. Sodium is 135, potassium 3.8, chloride is 106, CO2 is 24, BUN is 12, creatinine 0.76. Lactic acid is 1, calcium 8, phosphorus 2.7, magnesium 1.8, bilirubin is 0.3, AST is 23, ALT is 13, alkaline phosphatase is 61. Troponin is negative. Serum total protein 4.7, albumin 2.2, globulin 2.0. ASSESSMENT: 1. Diffuse large B-cell lymphoma, status post chemotherapy. 2. Urinary retention. 3. Possible urosepsis. DISCUSSION: The patient has improved with antibiotics and IV hydration. He does have a Pascal catheter in place. He has an appointment with Urology on Friday. His chemo cycle 3 was due today, that has been postponed until next week. He can go home from my perspective to follow up as scheduled next week for cycle 3. Thank you for the consult. Job ID: [id number]
[2019-02-24 05:50] LABS: ALT (SGPT) 12 U/L (8-55); AST (SGOT) 31 U/L (5-34); Albumin 2.6 g/dL (3.4-4.8); Alkaline Phosphatase 76 U/L (40-150); Anion Gap 9 mmol/L (10-20); BUN (Urea Nitrogen) 12 mg/dL (8.4-25.7); Bilirubin, Total 0.3 mg/dL (0.2-1.2); Calc. Creatinine Clearance 76 mL/min (70-130); Calcium 7.9 mg/dL (7.8-10.44); Carbon Dioxide 25 mmol/L (23-31); Chloride 102 mmol/L (98-107); Estimated GFR-MDRD Greater than 90; Globulin 2.1 g/dL (2.4-3.5); Glucose 102 mg/dL (83-110); Magnesium 1.7 mg/dL (1.6-2.6); Phosphorus 2.9 mg/dL (2.3-4.7); Potassium 3.6 mmol/L (3.5-5.1); Protein, Total 4.7 g/dL (5.8-8.1); Sodium 132 mmol/L (136-145)
[2019-02-24 06:38] LABS: #Eosinphils 0.1 thou/uL (0.0-0.7); #Neutrophils 9.3 thou/uL (1.40-6.50); %Basophils 0.4 % (0.0-1.0); %Eosinophils 0.7 % (0.0-10.0); %Lymphocytes 8.7 % (21.0-51.0); %Monocytes 9.1 % (0.0-10.0); %Neutrophils 81.1 % (42.0-75.0); Hemoglobin 8.6 g/dL (14.0-18.0); Mean Corpuscular HGB CONC 33.2 g/dL (32.0-36.0); Mean Corpuscular Hemoglobin 28.6 pg (27.0-31.0); Mean Corpuscular Volume 86.3 fL (78.0-98.0); Mean Platelet Volume 6.2 fL (7.4-10.4); Platelet Count 256 thou/uL (130-400); RBC Distribution Width 15.3 % (11.5-14.5); Red Blood Cell (RBC) Count 2.99 mill/uL (4.70-6.10); White Blood Cell (WBC) Count 11.5 thou/uL (4.8-10.8)
[2019-02-24] MEDS ORDERED: Potassium Chloride 20 MEQ TAB PO SCH (07:30)
--- NOTE | 2019-02-24 07:45 | PDOC.HOSPP ---
- Subjective Encounter Date: 02/24/19 Encounter Time: 07:44 Subjective: Seen and examined. No new problem - Objective Vital Signs & Weight: Vital Signs (12 hours) Temp Pulse Resp BP Pulse Ox 02/24/19 07:25 91 L 02/24/19 06:15 100 18 91 L 02/24/19 06:08 133/76 02/23/19 23:45 98.3 F 95 16 98/53 L 92 L 02/23/19 20:00 98.7 F 112 H 122/57 L 93 L Weight Admit Weight 137 lb Weight 137 lb 2 oz I&O: 02/23/19 02/24/19 02/25/19 06:59 06:59 06:59 Intake Total 1177 Output Total 600 1150 Balance -600 27 Result Diagrams: 02/24/19 06:25 02/24/19 05:06 Hospitalist ROS - Medication Medications: Active Medications Generic Name Dose Route Start Last Admin Trade Name Freq PRN Reason Stop Dose Admin Acetaminophen 650 mg 02/21/19 22:52 02/22/19 19:36 Tylenol PO 650 mg Q4H PRN Administration Headache/Fever/Mild Pain (1-3) Acetaminophen/Codeine Phosphate 1 tab 02/22/19 19:51 02/23/19 19:54 Tylenol #3 PO 1 tab Q4H PRN Administration Moderate Pain (4-6) Albuterol/Ipratropium 3 ml 02/23/19 11:00 02/24/19 06:15 Duoneb NEB 3 ml QID-RT JOVANI Administration Famotidine 20 mg 02/22/19 09:00 02/23/19 19:53 Pepcid PO 20 mg BID JOVANI Administration Fluconazole 400 mg 02/23/19 09:00 02/23/19 08:32 Diflucan PO 400 mg DAILY JOVANI Administration Pantoprazole Sodium 40 mg 02/22/19 09:00 02/23/19 08:31 Protonix PO 40 mg DAILY JOVANI Administration Patient Own Medication 0 each 02/23/19 11:19 02/23/19 11:33 Patient's Home Medication TOP 1 each BIDPRN PRN Administration .PRN Polyethylene Glycol 17 gm 02/22/19 09:00 02/23/19 19:53 Miralax PO Not Given BID JOVANI Sodium Chloride 10 ml 02/23/19 09:00 02/23/19 19:55 Flush - Normal Saline IVF 10 ml Q12HR JOVANI Administration Tamsulosin HCl 0.4 mg 02/22/19 09:00 02/23/19 08:31 Flomax PO 0.4 mg DAILY JOVANI Administration Trimethoprim/Sulfamethoxazole 1 tab 02/23/19 09:00 02/23/19 19:53 Bactrim Ds PO 1 tab BID JOVANI Administration Hosp A/P (1) Severe sepsis Code(s): A41.9 - SEPSIS, UNSPECIFIED ORGANISM; R65.20 - SEVERE SEPSIS WITHOUT SEPTIC SHOCK Status: Acute (2) Catheter-associated urinary tract infection Code(s): T83.511A - I/I REACT D/T INDWELLING URETHRAL CATHETER, INIT; N39.0 - URINARY TRACT INFECTION, SITE NOT SPECIFIED Status: Acute (3) Urinary retention due to benign prostatic hyperplasia Code(s): N40.1 - BENIGN PROSTATIC HYPERPLASIA WITH LOWER URINARY TRACT SYMP; R33.8 - OTHER RETENTION OF URINE Status: Acute (4) Chronic indwelling Pascal catheter Code(s): Z96.0 - PRESENCE OF UROGENITAL IMPLANTS Status: Acute (5) Abdominal pain Code(s): R10.9 - UNSPECIFIED ABDOMINAL PAIN Status: Acute (6) Abdominal mass Code(s): R19.00 - INTRA-ABD AND PELVIC SWELLING, MASS AND LUMP, UNSP SITE Status: Acute (7) Hypokalemia Code(s): E87.6 - HYPOKALEMIA Status: Acute (8) Hypotension Status: Acute (9) Constipation Code(s): K59.00 - CONSTIPATION, UNSPECIFIED Status: Acute (10) Large B-cell lymphoma Code(s): C85.10 - UNSPECIFIED B-CELL LYMPHOMA, UNSPECIFIED SITE Status: Acute (11) Suri cystitis Code(s): B37.41 - CANDIDAL CYSTITIS AND URETHRITIS Status: Acute (12) Hypoxia Code(s): R09.02 - HYPOXEMIA Status: Acute (13) COPD (chronic obstructive pulmonary disease) Status: Acute - Plan Discharge home today. Will need home oxygen. Discharge summary dictated. #[id number]
[2019-02-24 08:01] VITALS: BP 132/58; TEMP 99.7
[2019-02-24] MEDS: Fluconazole 100 MG TAB PO SCH (08:30)
[2019-02-24] MEDS: Tamsulosin HCl 0.4 MG CAP PO SCH (08:31)
[2019-02-24] MEDS: Famotidine 20 MG TAB PO SCH (08:31)
[2019-02-24] MEDS: Sulfameth/Trimethoprim DS 800-160mg TAB PO SCH (08:31)
[2019-02-24] MEDS: PATIENT'S HOME MEDICATION TOP PRN (08:31)
[2019-02-24] MEDS: Polyethylene Glycol 3350 17 GM Packet PO SCH (08:32)
--- NOTE | 2019-02-24 08:32 | DIS ---
DATE OF ADMISSION: 02/21/2019 DATE OF DISCHARGE: 02/24/2019 PRIMARY CARE PHYSICIAN: Dr. Venus Almonte. DISCHARGE DIAGNOSES: 1. Severe sepsis. 2. Hypertension. 3. Catheter-associated urinary tract infection. 4. Urinary retention due to benign prostatic hyperplasia. 5. Chronic indwelling Pascal catheter. 6. 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 7. Large B-cell lymphoma, on treatment. 8. Constipation. 9. Hypokalemia. 10. Abdominal mass: Related to B-cell lymphoma. 11. Acute respiratory failure with hypoxia. 12. Chronic obstructive pulmonary disease without obvious exacerbation. 13. Abdominal pain. 14. Physical deconditioning. CONSULTS: Hematology/Oncology. HOSPITAL COURSE: A 78-year-old male patient with known history of lymphoma on treatment as well as chronic urinary retention due to BPH, status post chronic indwelling Pascal catheter, admitted with abdominal pain associated with fever and chills. The patient was found to be hypotensive on presentation, which improved with aggressive fluid therapy for severe sepsis. CT scan of the abdomen and pelvis showed poorly circumscribed mesenteric mass, which encases multiple bowel loops showing a decrease in size from prior study as well as lymphadenopathy in the left retroperitoneal level of aortic bifurcation as well as other multiple lymph nodes. There was no overt large or small bowel obstruction. Impression of urinalysis showed large blood as well as trace ketone with leukocyte esterase and nitrite was negative. Impression of severe sepsis was made, and the patient was started on broad-spectrum antibiotic therapy as well as IV fluids after blood and urine cultures were collected. Blood cultures came back no growth. However, urine cultures grew yeast confirmed to be Suri tropicalis. Impression of Suri cystitis was made and given the patient is immunocompromised from lymphoma, he was started on fluconazole. Broad-spectrum antibiotics were later de-escalated given negative blood cultures and urine culture. Hospital course was however complicated by development of hypoxia. This was concerning for PE given that the patient had neoplastic disease. D-dimer obtained was elevated, and the patient was subsequently evaluated with CT angio of the chest, which was negative for PE. However, he was found to have severe COPD. Oxygen supplementation was continued, and the patient could not be weaned off, hence was discharged home on home oxygen. The patient also received physical therapy with improvement but was felt to be in need of further therapy. He will be sent for outpatient physical therapy if home health cannot be arranged. The patient was due to have his chemotherapy session during his admission, but was seen by Hematology-Oncology and that was postponed to next week. PHYSICAL EXAMINATION: VITAL SIGNS: Temperature 98.3, pulse 95, respiratory rate 16, SpO2 92 on 2 L nasal cannula, and blood pressure is 133/76. GENERAL: Elderly male, in no obvious distress. Afebrile. Anicteric. Acyanotic. HEENT: Normocephalic and atraumatic. Oral mucosa is moist. CARDIOVASCULAR: Regular rhythm with occasional ectopics. Normal heart sounds one and two. RESPIRATORY: Fair air entry with scattered crackles/transmitted sounds. Work of breathing is not increased. GI: Full, soft, nontender, nondistended with normal bowel sounds. EXTREMITIES: Grossly normal, looking atraumatic with no edema or erythema. DAIRY BACTERIOLOGIST: Conscious, alert, oriented x3 with appropriate mental status. DISCHARGE DISPOSITION: Home. DISCHARGE CONDITION: Improved. DISCHARGE MEDICATIONS: 1. Allopurinol 100 mg p.o. daily. 2. Lovastatin 40 mg p.o. daily at bedtime. 3. Omeprazole 20 mg p.o. daily. 4. MiraLAX 17 g p.r.n. for constipation. 5. Prednisone 40 mg during chemotherapy. 6. Tamsulosin 0.4 mg p.o. daily. 7. Albuterol 2 puffs q.4 inhalation for shortness of breath. 8. Fluconazole 200 mg p.o. daily. 9. Breo one inhalation p.o. daily. 10. Levofloxacin 750 mg p.o. daily for 10 days. 11. Metoprolol 25 mg p.o. daily. FOLLOWUP: 1. With PCP in 3 days. 2. With urologist on February 26, 2019. 3. With Hematology-Oncology in 1 week. TIME SPENT: This discharge took more than 40 minutes. Job ID: [id number]
[2019-02-24] MEDS ORDERED: Potassium Chloride 10 MEQ TAB PO SCH (08:45)
[2019-02-24] MEDS ORDERED: DULCOLAX PO SCH (09:00)
--- NOTE | 2019-02-24 10:07 | PDOC.MOPN ---
Interval History: feels much better. wants to go home. - Vital Signs Vital Signs: Vital Signs (12 hours) Temp Pulse Resp BP Pulse Ox 02/24/19 07:53 99.7 F H 101 H 20 132/58 L 90 L 02/24/19 07:25 91 L 02/24/19 06:15 100 18 91 L 02/24/19 06:08 133/76 02/23/19 23:45 98.3 F 95 16 98/53 L 92 L Weight Admit Weight 137 lb Weight 137 lb 2 oz - Physical Exam General: Alert, Oriented x3, No acute distress HEENT: Atraumatic, PERRLA, EOMI, Mucous membr. moist/pink Lungs: Clear to auscultation, Normal air movement Cardiovascular: Regular rate, Normal S1, Normal S2, No murmurs, Gallops, Rubs Abdomen: Normal bowel sounds, Soft, No tenderness, No hepatospenomegaly, No masses Extremities: No clubbing, No cyanosis, No edema, Normal pulses, No tenderness/ swelling Skin: No rashes, No breakdown, No significant lesion Neurological: Normal gait, Normal speech, Strength at 5/5 X4 ext, Normal tone, Sensation intact, Cranial nerves 3-12 NL, Reflexes 2+ Psych/Mental Status: Mental status NL, Mood NL - Labs Result Diagrams: 02/24/19 06:25 02/24/19 05:06 Lab results: Laboratory Results - last 24 hr 02/24/19 06:25: WBC 11.5 H, RBC 2.99 L, Hgb 8.6 L, Hct 25.8 L, MCV 86.3, MCH 28.6, MCHC 33.2, RDW 15.3 H, Plt Count 256, MPV 6.2 L, Neutrophils % 81.1 H, Lymphocytes % 8.7 L, Monocytes % 9.1, Eosinophils % 0.7, Basophils % 0.4, Neutrophils # 9.3 H, Lymphocytes # 1.0 L, Monocytes # 1.0 H, Eosinophils # 0.1, Basophils # 0.0 02/24/19 05:06: Sodium 132 L, Potassium 3.6, Chloride 102, Carbon Dioxide 25, Anion Gap 9 L, BUN 12, Creatinine 0.69 L, Estimated GFR (MDRD) Greater than 90 , Glucose 102, Calcium 7.9, Phosphorus 2.9, Magnesium 1.7, Total Bilirubin 0.3, AST 31, ALT 12, Alkaline Phosphatase 76, Serum Total Protein 4.7 L, Albumin 2.6 L, Globulin 2.1 L, Albumin/Globulin Ratio 1.2 Status: lab reviewed by me A/P - Problem (1) Large B-cell lymphoma Current Visit: No Code(s): C85.10 - UNSPECIFIED B-CELL LYMPHOMA, UNSPECIFIED SITE Status: Acute - Plan Plan: RTC next week for chemo call for any concerns follow-up Urology
[2019-02-24] MEDS: Acetaminophen/Codeine 30-300mg Tablet PO PRN (14:06)
== END 2019-02-24 16:33 | disposition home or self-care (01) | DRG 698 ==
LOC: ERS 16:27 → ONC 19:33
PROVIDERS: ADMIT Internal Medicine; ATTEND Internal Medicine
DX: T83.511A Infection and inflammatory reaction due to indwelling urethral catheter, initial encounter (principal); A41.9 Sepsis, unspecified organism; R65.20 Severe sepsis without septic shock; J96.01 Acute respiratory failure with hypoxia; E87.2 Acidosis; E87.1 Hypo-osmolality and hyponatremia; C83.30 Diffuse large B-cell lymphoma, unspecified site; N39.0 Urinary tract infection, site not specified; E11.9 Type 2 diabetes mellitus without complications; E78.5 Hyperlipidemia, unspecified; I25.10 Atherosclerotic heart disease of native coronary artery without angina pectoris; D64.9 Anemia, unspecified; E87.6 Hypokalemia; N40.1 Benign prostatic hyperplasia with lower urinary tract symptoms; I10 Essential (primary) hypertension; J44.9 Chronic obstructive pulmonary disease, unspecified; R33.8 Other retention of urine; K59.00 Constipation, unspecified; E78.00 Pure hypercholesterolemia, unspecified; K21.9 Gastro-esophageal reflux disease without esophagitis; I25.2 Old myocardial infarction; Z85.46 Personal history of malignant neoplasm of prostate; Z88.6 Allergy status to analgesic agent; Z79.899 Other long term (current) drug therapy; Z79.52 Long term (current) use of systemic steroids; Z79.51 Long term (current) use of inhaled steroids
CPT/HCPCS: 36415; 51702; 71045; 71275; 74177; 80053; 80069; 80202; 81003; 81015; 82533; 83605; 83690; 83735; 84100; 84484; 85025; 85379; 87040; 87086; 93005; 94640; 94760; 96365; 96366; 96367; 96375; J0696; J1885; J2543; J3010; J3370; J3475; J3480; J3490; J7620; Q9966

== ENCOUNTER 2019-03-09 10:14 | Outpatient (CLI) | payer MEDICARE ==
--- NOTE | 2019-03-09 12:08 | RAD ---
2 VIEW CHEST: Date: 03/09/19 COMPARISON: 02/21/19. INDICATION: Dyspnea. FINDINGS: Lungs are hyperinflated. There is coarsened interstitium bilaterally with opacities more pronounced t hroughout the right lung. A right venous chest port is in place. Cardiac silhouette is stable in size . There are metallic clips of the chest bilaterally. IMPRESSION: Bilateral interstitial opacities, asymmetrically greater on the right. This is a new finding from 07/11 exam and therefore favors an acute process which could relate to an acute, atypical pneumonia. This is favored over asymmetric edema. Correlate clinically. Imaged fur is also recommended. POS: [facility]
== END 2019-03-09 10:15 | disposition home or self-care (01) ==
LOC: RAD 10:14
PROVIDERS: ATTEND Internal Medicine
DX: R06.00 Dyspnea, unspecified (principal); R91.8 Other nonspecific abnormal finding of lung field; C83.32 Diffuse large B-cell lymphoma, intrathoracic lymph nodes
CPT/HCPCS: 71046; 80053; 82248; 83615; 84100; 84550

== ENCOUNTER 2019-03-15 10:53 | Outpatient (CLI) | payer MEDICARE | END 2019-03-15 10:54 | disposition home or self-care (01) | PROVIDERS: ATTEND Internal Medicine Hematology & Oncology | DX: R13.10 Dysphagia, unspecified (principal); R63.3 Feeding difficulties; C83.30 Diffuse large B-cell lymphoma, unspecified site | CPT/HCPCS: 74230 ==